=== PATIENT | male | born 1955 | race Caucasian/White ===

== ENCOUNTER 2018-07-25 07:17 | Inpatient (IN) ==
[2018-07-19 17:53] LABS: Basophils # (Auto) 0.1 K/mcL (0.0-0.3); Basophils % (Auto) 0.8 % (0.0-2.0); Eosinophils # (Auto) 0.1 K/mcL (0.0-0.7); Eosinophils % (Auto) 2.2 % (0.0-7.0); Granulocytes % (Auto) 62.3 % (38.0-78.0); Lymphocytes # (Auto) 1.6 K/mcL (1.5-4.8); Mean Cell Volume 94.5 fL (80.0-100.0); Mean Corpuscular HGB Conc 32.1 g/dL (31.0-36.0); Monocytes # (Auto) 0.6 K/mcL (0.1-0.9); Monocytes % (Auto) 9.7 % (1.0-12.0); Platelet Count 215 K/mcL (140-440); RBC 5.17 M/mcL (4.50-5.90); Red Cell Distribution Width 15.8 % (11.5-14.5)
[2018-07-19 18:20] LABS: Appearance,Urine CLEAR; Bilirubin,Urine NEG (NEG); Color,Urine YELLOW; Glucose,Urine (UA) NEGATIVE (NEG); Leukocyte Esterase,Urine NEG /uL (NEG); Protein,Urine NEG (NEG); Urine Blood NEG mg/dL (<0.03); Urobilinogen,Urine NEG (NEG)
[2018-07-19 18:29] LABS: Blood Urea Nitrogen 12 mg/dl (8-23)
[~2018-07-25 07:17] MED LIST: ACETAMINOPHEN 500 MG TABLET PO SCH; PREGABALIN 75 MG CAPSULE PO SCH; ceFAZolin 1 GM VIAL IV SCH; oxyCODONE 10 MG TAB.ER.12H PO SCH
[2018-07-25] MEDS ORDERED: GABAPENTIN 300 MG CAPSULE PO SCH (08:00)
[2018-07-25] MEDS ORDERED: NICOTINE 14 MG PATCH TOPICAL SCH (10:00)
[2018-07-25] MEDS ORDERED: IPRATROPIUM/ALBUTEROL 3 ML AMPUL.NEB NEB ONE (10:09)
[2018-07-25] MEDS ORDERED: GENTAMICIN SULFATE 800 MG/20 ML VIAL IR ONE (10:22)
[2018-07-25] MEDS ORDERED: BUPIVACAINE W/EPI 0.5% 50 ML VIAL IJ ONE (10:22)
[2018-07-25] MEDS ORDERED: fentaNYL 250 MCG/5 ML VIAL IV ONE (11:05)
[2018-07-25] MEDS ORDERED: KETAMINE 100 MG/ML ML IV ONE (11:05)
[2018-07-25] MEDS ORDERED: GLYCOPYRROLATE 0.2 MG/ML VIAL IV ONE (11:05)
[2018-07-25] MEDS ORDERED: PROPOFOL 200 MG/20 ML VIAL IV ONE (11:05)
[2018-07-25] MEDS ORDERED: ePHEDrine 50 MG/ML AMPUL IV ONE (11:05)
[2018-07-25] MEDS ORDERED: MIDAZOLAM 5 MG/5 ML VIAL IV ONE (11:05)
[2018-07-25] MEDS ORDERED: LIDOCAINE HCL/PF 100 MG/5 ML SYRINGE IV ONE (11:05)
[2018-07-25] MEDS ORDERED: TRANEXAMIC ACID 1,000 MG/10 ML VIAL IV ONE ×2 (11:05→12:38)
[2018-07-25] MEDS ORDERED: SUCCINYLCHOLINE 20 MG/ML ML IV ONE (11:05)
[2018-07-25] MEDS ORDERED: MEPERIDINE 25 MG/ML SYRINGE IV PRN (11:58)
[2018-07-25] MEDS ORDERED: IPRATROPIUM/ALBUTEROL 3 ML AMPUL.NEB NEB PRN ×2 (11:58→15:00)
[2018-07-25] MEDS ORDERED: ATROPINE SULFATE 0.4 MG/ML VIAL IV PRN (11:58)
[2018-07-25] MEDS ORDERED: NALOXONE HCL 0.4 MG/ML VIAL IV PRN (11:58)
[2018-07-25] MEDS ORDERED: HYDROmorphone 2 MG/ML VIAL IV PRN (11:58)
[2018-07-25] MEDS ORDERED: ONDANSETRON 4 MG/2 ML VIAL IV PRN ×2 (11:58→12:38)
[2018-07-25] MEDS ORDERED: METHOCARBAMOL 1,000 MG/10 ML VIAL IV PRN (11:58)
[2018-07-25] MEDS ORDERED: diphenhydrAMINE 50 MG/ML VIAL IV PRN (11:58)
[2018-07-25] MEDS ORDERED: ePHEDrine 50 MG/ML AMPUL IV PRN (11:58)
[2018-07-25] MEDS ORDERED: FLUMAZENIL 0.1 MG/ML ML IV PRN (11:58)
[2018-07-25] MEDS ORDERED: PROMETHAZINE 25 MG/ML VIAL IV PRN (11:58)
[2018-07-25] MEDS ORDERED: LACTATED RINGERS 1,000 ML IV SCH (12:00)
[2018-07-25] MEDS ORDERED: MAGNESIUM HYDROXIDE 30 ML ORAL.SUSP PO PRN (12:38)
[2018-07-25] MEDS ORDERED: TEMAZEPAM 15 MG CAPSULE PO PRN (12:38)
[2018-07-25] MEDS ORDERED: BENZOCAINE/MENTHOL 1 LOZENGE PO PRN (12:38)
[2018-07-25] MEDS ORDERED: ACETAMINOPHEN 325 MG TABLET PO PRN (12:38)
[2018-07-25] MEDS ORDERED: FLEETS ADULT ENEMA PR PRN (12:38)
[2018-07-25] MEDS ORDERED: POLYETHYLENE GLYCOL 3350 17 GM PACKET PO PRN (12:38)
[2018-07-25] MEDS ORDERED: BISACODYL 10 MG SUPP.RECT PR PRN (12:38)
--- NOTE | 2018-07-25 12:38 | Brief Operative Note ---
Date of procedure: 07/25/18 Pre-op diagnosis: Left shoulder djd severe and bicep tendonopathy Post-op diagnosis: same Procedure: left shoulder reveres tsa and bicep tenodesis Grafts/Implants: Yes Anesthesia: GETA Complications: none Surgeon: Ray Santo Filling Layer Up: Mega Gallagher Estimated blood loss (cc): 50 Specimens Removed/Pathology: none sent Condition: stable Disposition: PACU
[2018-07-25] MEDS ORDERED: ALBUTEROL SULFATE INHALATION PRN (12:40)
[2018-07-25] MEDS ORDERED: NON FORMULARY MEDICATION 1 DOSE MISCELL (Epinephrine [Epipen] 0.3 MG) IM PRN (12:40)
[2018-07-25] MEDS ORDERED: LIDOCAINE PATCH TOPICAL SCH (12:45)
[2018-07-25] MEDS ORDERED: ALBUTEROL SULFATE 1 PUFF INHALER INH PRN (13:16)
[2018-07-25] MEDS: fentaNYL 100 MCG/2 ML VIAL IV PRN ×4 (13:26→13:44)
[2018-07-25] MEDS: METOPROLOL TARTRATE 5 MG/5 ML VIAL IV PRN ×2 (13:55→14:01)
--- NOTE | 2018-07-25 14:11 | Operative Note ---
DATE OF OPERATION: 07/25/2018 PREOPERATIVE DIAGNOSIS: Left shoulder severe degenerative arthritis with partial cuff tear, biceps tendinopathy. POSTOPERATIVE DIAGNOSES: 1. Left shoulder severe degenerative arthritis with partial cuff tear, biceps tendinopathy. 2. Left reverse total shoulder with biceps tenodesis. SURGEON: Ray Santo MD CLINICAL PROFESSOR: Mega Gallagher PA-C. ANESTHESIA: General LMA anesthesia. COMPLICATIONS: None. DESCRIPTION OF PROCEDURE: The patient was brought to the operating room and put to sleep with general LMA anesthesia. Once asleep, the patient had the left arm confirmed as the operative site by initials, consent form and x-rays. Once done, the arm was sterilely prepped and draped and Ioban was placed over the skin. A deltopectoral approach was performed with a curved anterior incision from the coracoid to the base of the deltoid insertion site. We identified the cephalic vein, and this and deltoids were retracted laterally. We identified the subscap and the conjoined tendon. The conjoined tendon was retracted and we released the subscap anteriorly. The remnants of the biceps tendon were released and this was repaired to the pec major with two [id number] stitches after roughening the bone. Once a formal repair with a FiberWire had been done of the biceps tendon we then subluxed the humeral head, releasing the inferior capsule around the humeral head, placing retractors and then made or neck cut at 135 degrees from the cutting guide with 20 degrees of retroversion. Once this was cut, we then removed the bony fragment and subluxed the head posteriorly after removing osteophytes. Once done, retractors were placed. We then released the capsule around the glenoid and the remnants of the biceps tendon inside the joint and the labrum, 360 degree capsule release around the glenoid was performed and then we placed a drill hole in the middle with a pin at 10 degrees of inclination. Once done, we then reamed up to the size of 36 and then removed any bony overhang. Once done, we then placed a 36 mm screw centrally. This seemed to give good fixation centrally. We had to discard the first because it was unable to fully tension because of the screwdriver. The second screw tensioned perfectly and then we placed three additional screws, which were 32, 28 and 24. These gave excellent purchase. We tightened all screws and then we placed a 36 mm glenosphere with 2 mm of offset and 2 mm of eccentricity. Once done this was tapped into place. We prepared the humeral side, a size 8 stem, cementless. We then tapped this into place, and it was a little tight initially. We then had to countersink the stem 2 mm and then retrialed which was perfectly tensioned, regaining motion. We irrigated thoroughly, placed a size 8 cementless stem with a standard thickness poly. The patient tolerated this well. There was no complication. The shoulder was reduced and taken through full range of motion. It was stable, internal and external rotation and full adduction. We then irrigated thoroughly and did not repair the subscap and made sure the biceps tendon was fully repaired, which it was. We irrigated thoroughly with pulse lavage, closed the deltopectoral interval after inspecting it for bleeding and then closed the skin with 2-0 Vicryl and 3-0 Monocryl and adhesive closure was placed. The patient tolerated this well. There was no complication. A DonJoy sling was fitted and given to the patient. RBH:duc Job ID: [id number] Doc ID: [id number] Ray Santo MD
--- NOTE | 2018-07-25 14:15 | XRay Report ---
HISTORY: Postop left shoulder replacement FINDINGS: There is a well-positioned reverse left total shoulder prosthesis. There is no fracture or abnormal soft tissue calcification around the joint. Acromioclavicular joint is normal. IMPRESSION: Well-positioned shoulder prosthesis Interpreted and Authenticated by: Parrish Jiang 07/25/18
[2018-07-25] MEDS: KETOROLAC 15 MG/ML VIAL IV PRN ×2 (14:33→22:35)
[2018-07-25] MEDS: HYDROmorphone 2 MG/ML VIAL IV PRN ×2 (14:42→17:38)
[2018-07-25] MEDS: HYDROcodone/APAP 10/325MG TABLET PO PRN ×3 (14:43→22:37)
[2018-07-25] MEDS: 0.9 % SODIUM CHLORIDE 10 ML SYRINGE IV SCH ×2 (15:32→22:39)
[2018-07-25] MEDS: 0.45 % SODIUM CHLORIDE 1,000 ML IV SCH (17:36)
[2018-07-25] MEDS: OMEPRAZOLE 20 MG CAPSULE PO SCH (17:36)
[2018-07-25] MEDS: ceFAZolin 1 GM VIAL IV SCH (20:52)
[2018-07-25] MEDS: DOCUSATE SODIUM 100 MG CAPSULE PO SCH (20:55)
[2018-07-25] MEDS: GABAPENTIN 300 MG CAPSULE PO SCH (20:55)
[2018-07-25] MEDS ORDERED: ATORVASTATIN 20 MG TABLET PO SCH (21:00)
[2018-07-25] MEDS ORDERED: SENNOSIDES 1 TABLET PO SCH (21:00)
[2018-07-26] MEDS: 0.45 % SODIUM CHLORIDE 1,000 ML IV SCH (03:25)
[2018-07-26] MEDS: HYDROmorphone 2 MG/ML VIAL IV PRN (03:26)
[2018-07-26] MEDS: ceFAZolin 1 GM VIAL IV SCH (03:26)
[2018-07-26] MEDS: HYDROcodone/APAP 10/325MG TABLET PO PRN ×3 (03:27→11:30)
[2018-07-26] MEDS: 0.9 % SODIUM CHLORIDE 10 ML SYRINGE IV SCH (06:00)
[2018-07-26] MEDS: OMEPRAZOLE 20 MG CAPSULE PO SCH (07:01)
--- NOTE | 2018-07-26 07:33 | Orthopedic Progress Note ---
Subjective Patient information: Note initiated : 07/26/18 at 7:32 am Service Date, if different from initiated Date: [] Patient: Mando Valdez 63 y/o M admitted on 07/25/18 for Left Reverse Total Shoulder Arthroplasty with Open. Chief Complaint: [Pt is stable this morning on post operative day 1 without any significant concerns or complaints. Patients vital signs have remained stable. Patients dressing is dry and is grossly intact from a neurovascular and motor standpoint. Patients 10 point ROS is otherwise negative. ] Objective Vital signs: Vital Signs Temp Pulse Pulse Resp BP BP Pulse Ox 07/26/18 03:00 98.3 F 75 20 124/74 92 07/25/18 23:33 98.4 F 90 20 133/83 94 07/25/18 19:35 88 18 07/25/18 18:50 98.9 F 87 22 133/79 90 07/25/18 17:02 127/87 92 07/25/18 16:01 117/80 93 07/25/18 15:32 118/77 92 07/25/18 15:02 126/81 94 07/25/18 14:47 146/95 92 07/25/18 14:31 151/65 92 07/25/18 14:16 149/95 91 07/25/18 14:06 98.7 F 77 17 136/90 98 07/25/18 13:51 98.7 F 127 H 21 153/88 98 07/25/18 13:36 97.6 F 101 H 16 148/99 98 07/25/18 13:20 97.6 F 99 H 23 H 149/92 98 07/25/18 13:15 92 H 21 141/89 97 07/25/18 13:10 98 H 22 137/86 97 07/25/18 13:06 97.9 F 101 H 16 134/85 97 07/25/18 07:41 98.8 F 18 154/87 96 Intake and Output 07/25/18 07/26/18 07/26/18 21:59 05:59 13:59 Intake Total 900 1682 Output Total 400 600 Balance 500 1082 Intake: IV 982 Sodium Chloride 0.45% 1,000 ml 982 @ 100 mls/hr IV .Q10H [facility] Rx#: [id number] Oral 600 700 IV - Manual Only 300 Output: Void Amount 400 600 Other: Meal Dinner Percent of Meal Consumed 100% Feeding Ability Independent Urine Appearance Clear Clear Urine Color Light Andra Light Andra Urine Odor Strong Strong Weight 201 lb Intake & Output: Intake & Output 07/25/18 07/26/18 07/26/18 21:59 05:59 13:59 Intake Total 900 1682 Output Total 400 600 Balance 500 1082 Weight 201 lb Intake: IV 982 Sodium Chloride 0.45% 1,000 ml 982 @ 100 mls/hr IV .Q10H [facility] Rx#: [id number] Oral 600 700 IV - Manual Only 300 Output: Void Amount 400 600 Other: Meal Dinner Percent of Meal Consumed 100% Feeding Ability Independent Urine Appearance Clear Clear Urine Color Light Andra Light Andra Urine Odor Strong Strong Incision: Yes healing Incision clean and dry: Yes Dressing: Yes clean Weight bearing status: full Neurological exam IM: Yes motor sensory intact, Yes neurovascular intact Extremities exam IM: Yes Foot pink and warm, Yes neurovascular intact - Labs CBC & BMP: 07/19/18 15:01 07/19/18 15:01 Labs: 07/19/18 15:01 Hgb 15.7 Hct 48.8 Assessment and Plan (1) History of reverse total replacement of left shoulder joint The patient has been educated regarding dressing care, Physical Therapy recommen dations, home exercises, restrictions, and follow up appointments. The patient has had all necessary DME prescribed. The patient has remained relatively stable during their hospital course. Leave Dermabond patch intact until followup Status: Acute
--- NOTE | 2018-07-26 07:38 | Discharge Summary ---
Ortho Discharge - TSA - Patient Instructions Diet: Regular Diet Activity: activity as tolerated, weight bearing as tolerated Total Shoulder Protocol: Leave immobilizer in place except for bathing and ROM. Abduction pillow. Continue to wear sling until seen by physician. Codman Pendulum : These exercises use momentum produced by your body to move your shoulder joint. Bend your knees and shift your weight to your front leg, then back, allowing your arm to swing in the same directions. Using the same technique, alternately shift your weight between your right and left legs, allowing your arm to swing from side to side. These exercises are also performed in counterclockwise and clockwise circular motions. Typically these exercises are performed several times per day, for a set number repetitions or minutes, such as 20 times in a row or 5 minutes at a time. Dressing Care: May shower in 2 days - Problem Maintenance (1) History of reverse total replacement of left shoulder joint Status: Acute - Follow Up Plan Follow Up Appointments: Mega Gallagher PA-C [Physician [facility]] - 08/09/18 3:50 pm Disposition: Home, Self-Care Prognosis: Good Rehab Potential: Good I certify that the patient requires SNF services: No Overall status at discharge: patient is progressing back to baseline - Orders For Discharge Prescriptions: Docusate Sodium [Colace] 100 mg PO BID #60 capsule HYDROcodone/APAP 10/325MG [Anthony 10-325Mg] 1 - 2 tab PO Q4HP PRN #75 tab PRN Reason: Pain Level 3-6
[2018-07-26] MEDS: GABAPENTIN 300 MG CAPSULE PO SCH (07:52)
[2018-07-26] MEDS: DOCUSATE SODIUM 100 MG CAPSULE PO SCH (07:52)
[2018-07-26] MEDS ORDERED: ASPIRIN 81 MG TAB.CHEW PO SCH (09:00)
[2018-07-26] MEDS ORDERED: Tiotropium Br/Olodaterol Hcl [Stiolto Respimat] Inhaler INH SCH (09:00)
[2018-07-26] MEDS: KETOROLAC 15 MG/ML VIAL IV PRN (10:25)
== END 2018-07-26 12:20 | disposition home or self-care (01) | DRG 483 ==
LOC: MEDSUR 07:17 → EDSTATUS 12:00
PROVIDERS: ADMIT Orthopaedic Surgery; ATTEND Orthopaedic Surgery

== ENCOUNTER 2018-07-28 15:17 | Inpatient (IN) ==
[2018-07-28] MEDS ORDERED: NALOXONE HCL 0.4 MG/ML VIAL IV PRN (16:56)
[2018-07-28] MEDS ORDERED: ONDANSETRON 4 MG/2 ML VIAL IV PRN (16:56)
[2018-07-28] MEDS ORDERED: ALBUTEROL SULFATE 2.5 MG/3 ML NEBULIZER NEB PRN (16:56)
[2018-07-28] MEDS ORDERED: ACETAMINOPHEN 325 MG TABLET PO PRN (16:56)
--- NOTE | 2018-07-28 17:25 | Internal Med History&Physical ---
Medical - H&P: HPI Patient information: Note initiated : 07/28/18 at 5:23 pm Service Date, if different from initiated Date: [] Patient: Mando Valdez 63 y/o M admitted on 07/28/18 for COPD, pneumonia. Chief Complaint: fever, dyspnea, lethargy History of present illness: Mr. Valdez is a 63 year old M with a history of COPD, tobacco abuse, peptic sleep apnea on CPAP, reflux, coronary disease and osteoarthritis who had a reverse left total shoulder done on Wednesday of this week, who presents from [facility] with acute respiratory infection. The patient was discharged from the hospital on Wednesday. They live out of [facility] in [place] overnight Wednesday. He developed some labored breathing. The next morning he was about the same, however they went home. He subsequently continued to have labored breathing, developed fever up to 101.5. He became lethargic, decreased appetite, more fatigued and experiencing body aches in his upper body. He was using his incentive spirometer, he was driving 2500 mL on the hospital, could only get inspiratory volume to 500 mL's by the time they presented to the hospital. Today he continued to have fever, was fatigued and falling asleep or trying to eat, was dyspneic. His home oxygen saturation was about 70%. He received a DuoNeb, this increased to 73%. He did have a tank of oxygen at home (he does not routinely use oxygen) and they presented to [facility]. There is temperature was [id number]. Pulse is in the 90s. Saturations on room air were in the low 80s. White count was elevated at 13.7, electrolytes and renal function were normal. Chest radiograph, reports reads "Bilateral perihilar fullness and bilateral pulmonary opacities. The appearance is nonspecific but can be seen in setting of pulmonary edema, diffuse pneumonitis, atypical infection." He was still experiencing significant dyspnea which improved to some degree after breathing treatments. He is transferred to [facility] for hospitalization for COPD exacerbation with pneumonia, meeting sepsis criteria with fever, white count, tachypnea, hypoxia and suspected infection. As noted the patient has noted fever, he's had no rigors. He has a cough, is productive of scant tannish sputum. He's having muscular and rib pain across his anterior chest with coughing today. Said decreased appetite and has noticed his urine volume is become decreased and urine has darkened. No nausea or vomiting, no abdominal pain. He is constipated, he has not had a bowel movement since Wednesday. No focal neurologic symptoms. Psoriatic lesions are stable. Chronic knee pains which are unchanged. All systems: reviewed and no additional remarkable complaints except as stated Medical - H&P: PMH Medical history: Tobacco use (Chronic) History of MRSA infection (Chronic) Vertigo (Chronic) Ganglion cyst (Chronic) Osteoarthritis (Chronic) Cooper syndrome (Chronic) Chest pain (Chronic) Depressed mood (Chronic) Weight gain (Chronic) Chronic pain of both knees (Chronic) Laryngospasm (Chronic) Asthma (Chronic) Knee pain (Chronic) Sensorineural hearing loss, bilateral (Chronic) Psoriasis, unspecified (Chronic) Pain in right knee (Chronic) Obstructive sleep apnea (Chronic) Moderate persistent asthma, uncomplicated (Chronic) Hyperlipidemia, unspecified (Chronic) 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) Gastro-esophageal reflux disease without esophagitis (Chronic) Ganglion, unspecified wrist (Chronic) Calculus of kidney (Chronic) Bilateral primary osteoarthritis of knee (Chronic) Unspecified hemorrhoids (Chronic) COPD (chronic obstructive pulmonary disease) (Chronic) Past heart attack (Suspected) Airway polyps (Resolved) Pneumothorax (Resolved) Surgical history: H/O hernia repair (Chronic) H/O left knee surgery (Chronic) H/O vasectomy (Chronic) History of amputation of left thumb (Chronic) History of colonoscopy (Chronic ~2012) H/O left reverse total shoulder arthroplasty (07/25/2018) Pertinent family history: Mother Emphysema Family/Other Cooper syndrome Social history: [place] with [place] in [place] from [place]. Smokes about a half pack cigarettes a day. Occasionally drinks alcohol. Medical - H&P: Meds Home Medications Medication Instructions Recorded Confirmed Type albuterol sulfate 2.5 mg/3 mL 2.5 mg INHALATION Q4HP PRN 04/23/17 07/28/18 History (0.083 %) solution for nebulization aspirin 81 mg chewable tablet 81 mg PO QDAY 04/23/17 07/28/18 History atorvastatin 10 mg tablet 10 mg PO QDAY 04/23/17 07/28/18 History diclofenac 1 % topical gel 2 - 4 g TOPICAL BIDP PRN g 04/23/17 07/28/18 History omeprazole 40 mg capsule,delayed 40 mg PO BIDAC 04/23/17 07/28/18 History release epinephrine 0.3 mg/0.3 mL 0.3 mg IM PRN PRN 04/26/17 07/28/18 History injection, auto-injector ipratropium-albuterol 0.5 mg-3 3 ml INHALATION Q4HP PRN ml 04/26/17 07/28/18 History mg(2.5 mg base)/3 mL nebulization soln mometasone 220 mcg (120 doses) 2 inh INHALATION BID each 04/26/17 07/28/18 History breath activated powder inhaler gabapentin 300 mg capsule 600 mg PO BID 08/25/17 07/28/18 History lidocaine 5 % topical patch 1 patch TOPICAL Q24H 08/25/17 07/28/18 History tiotropium 2.5 mcg-olodaterol 2.5 2 puff INHALATION QAM g 03/09/18 07/28/18 History mcg/actuation mist for inhalation albuterol sulfate HFA 90 2 puff INHALATION Q6H PRN #34 g 06/28/18 07/28/18 Rx mcg/actuation aerosol inhaler Diazepam [Valium] 5 mg PO TIDP PRN #60 tab 07/26/18 07/28/18 Rx Docusate Sodium [Colace] 100 mg PO BID #60 cap 07/26/18 07/28/18 Rx HYDROcodone/APAP 10/325MG [[place] 1 - 2 tab PO Q4HP PRN #75 tab 07/26/18 07/28/18 Rx 10-325Mg] Allergies Allergy/AdvReac Type Severity Reaction Status Date / Time levofloxacin Allergy Severe Swelling Verified 07/19/18 14:12 of Lip/Tongue/Throat Sulfa (Sulfonamide Allergy Severe Swelling Verified 07/19/18 14:19 Antibiotics) of Lip/Tongue/Throat fluticasone Allergy Intermediate "RESPIRATORY Verified 07/19/18 14:12 ISSUES" Penicillins Allergy Intermediate "BREATHING Verified 07/19/18 14:12 PROBLEMS" oxycodone [Oxycodone] AdvReac Mild Vomiting Verified 07/19/18 14:12 Medical - H&P: Exam - Constitutional Vitals: Temp Pulse Resp BP Pulse Ox 99.5 F H 90 18 141/78 90 07/28/18 16:30 07/28/18 16:35 07/28/18 16:30 07/28/18 16:31 07/28/18 16:35 Exam: GENERAL: Alert, oriented, in no acute distress. Cooperative, appears stated age. HEENT: Atraumatic. PERRL, conjunctiva clear, no scleral icterus. Hearing grossly intact. Oropharynx with moist mucous membranes, small abrasion on upper and lower lips at the midline, thought from intubation. No pharyngeal erythema or exudate. Tongue midline, palate rises symmetrically. NECK: Supple without meningismus, no thyromegaly RESPIRATORY: Breath sounds diminished bilaterally, mildly prolonged expiratory phase, scattered expiratory wheezes, no rales or rhonchi. Respiratory effort is mildly labored. CARDIOVASCULAR: Regular rate and rhythm, a bit distant, no murmur gallop or rub appreciated. No peripheral edema. Carotid pulses 2+ without bruit. GI: Abdomen soft, nontender, no guarding or rebound. Bowel sounds are present. No hepatosplenomegaly. LYMPHATIC: No cervical or supraclavicular lymphadenopathy MUSCULOSKELETAL: Left upper extremity is in shoulder immobilizer. Well approximated surgical scar without surrounding erythema or edema. No other joint erythema or swelling. Well-healed surgical scars on the left and right knees. SKIN: Surgical wound as noted above, otherwise scattered plaquing lesions on the extremities. NEUROLOGIC: Cranial nerves II through XII grossly intact. Muscle mass normal. Strength 5/5 in the right upper and lower extremities. Left upper extremity is neurovascularly intact. Sensation intact to light touch bilaterally. PSYCHIATRIC: Alert, oriented x3, normal mood and affect, normal insight. Medical - H&P: Reslt - Labs CBC & Chem 7: 07/28/18 18:05 07/28/18 18:05 Labs: Laboratory Results - last 24 hr 07/28/18 07/28/18 07/28/18 18:00 18:05 18:05 WBC 13.4 H RBC 4.20 L Hgb 13.1 L Hct 40.3 L MCV 96.1 MCH 31.2 MCHC 32.5 RDW 16.0 H Plt Count 165 MPV 9.5 Total Counted 100 Seg Neutrophils % 77 Band Neutrophils % 4 Lymphocytes % 10 L Monocytes % (Manual) 8 Basophils % (Manual) 1 WBC Morphology Abnorm A Toxic Granulation 1+ A Platelet Estimate Normal RBC Morphology Normal VBG Lactic Acid Sodium 136 Potassium 4.1 Chloride 100 Carbon Dioxide 26 Anion Gap 10.0 BUN 10 Creatinine 0.7 GFR Calculation 100 Glucose 108 H Uric Acid 2.6 Calcium 8.5 L Phosphorus 1.6 L Magnesium 1.7 Total Bilirubin 0.7 Direct Bilirubin 0.2 GGT 91 H AST 33 ALT 23 Alkaline Phosphatase 75 Lactate Dehydrogenase 357 H Total Protein 6.2 Albumin 3.0 L Globulin 3.2 Albumin/Globulin Ratio 0.9 L Triglycerides 93 Procalcitonin Mycoplasma pneumon IgM Negative 07/28/18 07/28/18 18:28 19:59 WBC RBC Hgb Hct MCV MCH MCHC RDW Plt Count MPV Total Counted Seg Neutrophils % Band Neutrophils % Lymphocytes % Monocytes % (Manual) Basophils % (Manual) WBC Morphology Toxic Granulation Platelet Estimate RBC Morphology VBG Lactic Acid 1.1 Sodium Potassium Chloride Carbon Dioxide Anion Gap BUN Creatinine GFR Calculation Glucose Uric Acid Calcium Phosphorus Magnesium Total Bilirubin Direct Bilirubin GGT AST ALT Alkaline Phosphatase Lactate Dehydrogenase Total Protein Albumin Globulin Albumin/Globulin Ratio Triglycerides Procalcitonin 0.16 Mycoplasma pneumon IgM - Imaging and Cardiology Chest x-ray Status: image reviewed by me Additional comments: Perihilar infiltrates. Medical - H&P: A/P - Narrative A/P Narrative: 63-year-old male COPD, tobacco abuse and fairly abrupt onset of pulmonary symptoms Wednesday evening, progressing until he was hypoxic and fatigued with lethargy at home today. Presented to outside hospital with hypoxemia, bronchospasm, leukocytosis and evidence of infiltrates on radiograph. COPD with exacerbation and pneumonia/sepsis -Elevated white count, normal lactate. Per the hilar infiltrates. Was significantly tight and hypoxic at [facility], now improving -Recent hospitalization here will cover for hospital-acquired pneumonia initially -Began ertapenem given penicillin allergy -Inpatient admission -Follow-up cultures at outside facility and here -Follow-up urine strep pneumo and Legionella antigen Acute hypoxemic respiratory failure -Secondary to pneumonia, COPD exacerbation -Supplemental oxygen as needed Tobacco abuse -Smoking cessation counseled Obstructive sleep apnea -Continue home CPAP Gastroesophageal reflux disease -Continue PPI History of left reverse total shoulder arthroplasty -Wound looks intact, no erythema, no edema, do not suspect source of infection -Let Dr. Santo know patient was hospitalized today. Continue with immobilizer Prophylaxis: Lovenox CODE STATUS: Full code
[2018-07-28] MEDS: 0.9 % SODIUM CHLORIDE 1,000 ML IV SCH (17:46)
[2018-07-28] MEDS: ERTAPENEM 1 GM in 0.9 % SODIUM CHLORIDE 50 ML IV SCH (17:49)
[2018-07-28 18:42] LABS: Mean Cell Volume 96.1 fL (80.0-100.0); Mean Corpuscular HGB Conc 32.5 g/dL (31.0-36.0); Platelet Count 165 K/mcL (140-440)
[2018-07-28] MEDS: IPRATROPIUM/ALBUTEROL 3 ML AMPUL.NEB NEB SCH ×2 (18:45→23:57)
[2018-07-28 19:09] LABS: ALT/SGPT 23 U/l (0-40); Albumin/Globulin Ratio 0.9 (1.0-2.3); Alkaline Phosphatase 75 U/L (39-117); Bilirubin,Direct 0.2 mg/dL (0.0-0.3); Blood Urea Nitrogen 10 mg/dl (8-23); Gamma Glutamyl Transpeptidase 91 U/L (8-61); Uric Acid 2.6 mg/dL (2.5-8.0)
[2018-07-28 20:17] LABS: Band Neutrophils % 4 % (0-10); Basophils % (Manual) 1 % (0-2); Lymphocytes % 10 % (15-49); Monocytes % (Manual) 8 % (1-12); Platelet Estimate NORMAL (NORMAL); RBC Morphology NORMAL (NORMAL); Segmented Neutrophils % 77 % (38-78); Toxic Granulation 1+ (NONE SEEN)
[2018-07-28] MEDS: HYDROcodone/APAP 5/325MG TABLET PO PRN (21:46)
[2018-07-28] MEDS: 0.9 % SODIUM CHLORIDE 10 ML SYRINGE IV SCH (22:33)
[2018-07-29] MEDS: 0.9 % SODIUM CHLORIDE 1,000 ML IV SCH ×3 (03:39→16:44)
[2018-07-29] MEDS: 0.9 % SODIUM CHLORIDE 10 ML SYRINGE IV SCH ×3 (05:29→22:00)
[2018-07-29] MEDS ORDERED: OMEPRAZOLE 20 MG CAPSULE PO SCH (07:30)
[2018-07-29] MEDS: HYDROcodone/APAP 5/325MG TABLET PO PRN ×4 (08:14→21:23)
[2018-07-29] MEDS: ERTAPENEM 1 GM in 0.9 % SODIUM CHLORIDE 50 ML IV SCH (08:17)
--- NOTE | 2018-07-29 08:58 | XRay Report ---
HISTORY: Pneumonia and COPD FINDINGS: There are moderate generalized alveolar opacities throughout both lungs. There is greater involvement in the left side than right with the greatest opacification left upper lobe and around the left hilum. This has not changed significantly since the earlier study done on the same date at [facility]. The heart size is within normal limits. There is no pleural effusion or pneumothorax. Left shoulder prosthesis is well-positioned. There are couple old healed left lateral rib fractures in the upper thorax.. IMPRESSION: Widespread bilateral alveolar opacities which could be due to pneumonia or pulmonary edema. Interpreted and Authenticated by: Parrish Jiang 07/29/18
[2018-07-29] MEDS ORDERED: ASPIRIN 81 MG TAB.CHEW PO SCH (09:00)
[2018-07-29] MEDS ORDERED: GABAPENTIN 300 MG CAPSULE PO SCH (09:00)
[2018-07-29] MEDS ORDERED: MOMETASONE FUROATE INH SCH (09:00)
[2018-07-29] MEDS ORDERED: ATORVASTATIN 20 MG TABLET PO SCH (09:00)
[2018-07-29] MEDS ORDERED: ENOXAPARIN 40 MG/0.4 ML SYRINGE SQ SCH (09:00)
[2018-07-29] MEDS ORDERED: STIOLTO RESPIMAT SCH (09:00)
[2018-07-29 09:05] LABS: Basophils # (Auto) 0 K/mcL (0.0-0.3); Basophils % (Auto) 0.2 % (0.0-2.0); Eosinophils # (Auto) 0.1 K/mcL (0.0-0.7); Eosinophils % (Auto) 0.5 % (0.0-7.0); Granulocytes % (Auto) 81.8 % (38.0-78.0); Lymphocytes # (Auto) 0.6 K/mcL (1.5-4.8); Lymphocytes % (Auto) 4.5 % (15.5-49.0); Mean Cell Volume 96.3 fL (80.0-100.0); Mean Corpuscular HGB Conc 32.2 g/dL (31.0-36.0); Monocytes # (Auto) 1.7 K/mcL (0.1-0.9); Platelet Count 200 K/mcL (140-440); RBC 4.12 M/mcL (4.50-5.90); Red Cell Distribution Width 16.1 % (11.5-14.5)
[2018-07-29] MEDS: IPRATROPIUM/ALBUTEROL 3 ML AMPUL.NEB NEB SCH ×3 (09:08→19:08)
[2018-07-29 09:25] LABS: ALT/SGPT 25 U/l (0-40); Albumin 3.2 gm/dL (3.2-5.2); Alkaline Phosphatase 88 U/L (39-117); Bilirubin,Direct 0.4 mg/dL (0.0-0.3); Blood Urea Nitrogen 8 mg/dl (8-23); Gamma Glutamyl Transpeptidase 103 U/L (8-61); Uric Acid 2.5 mg/dL (2.5-8.0)
[2018-07-29] MEDS ORDERED: NICOTINE 7 MG PATCH TOPICAL SCH (10:00)
[2018-07-29] MEDS ORDERED: DOCUSATE SODIUM 100 MG CAPSULE PO SCH (14:00)
--- NOTE | 2018-07-29 14:43 | Internal Med Progress Note ---
Medical - PN: Subj Patient information: Note initiated : 07/29/18 at 2:38 pm Service Date, if different from initiated Date: [] Patient: Mando Valdez 63 y/o M admitted on 07/28/18 for COPD, pneumonia. Chief Complaint: f/u COPD, PNA Interval history: 07/28 Mr. Valdez is a 63 year old M with a history of COPD, tobacco abuse, peptic sleep apnea on CPAP, reflux, coronary disease and osteoarthritis who had a re verse left total shoulder done on Wednesday of this week, who presents from [facility] with acute respiratory infection. The patient was discharged from the hospital on Wednesday. They live out of [facility] in [place] overnight Wednesday. He developed some labored breathing. The next morning he was about the same, however they went home. He subsequently continued to have labored breathing, developed fever up to 101.5. He became lethargic, decreased appetite, more fatigued and experiencing body aches in his upper body. He was using his incentive spirometer, he was driving 2500 mL on the hospital, could only get inspiratory volume to 500 mL's by the time they presented to the hospital. Today he continued to have fever, was fatigued and falling asleep or trying to eat, was dyspneic. His home oxygen saturation was about 70%. He received a DuoNeb, this increased to 73%. He did have a tank of oxygen at home (he does not routinely use oxygen) and they presented to [facility]. There is temperature was [id number]. Pulse is in the 90s. Saturations on room air were in the low 80s. White count was elevated at 13.7, electrolytes and renal function were normal. Chest radiograph, reports reads "Bilateral perihilar fullness and bilateral pulmonary opacities. The appearance is nonspecific but can be seen in setting of pulmonary edema, diffuse pneumonitis, atypical infec tion." He was still experiencing significant dyspnea which improved to some degree after breathing treatments. He is transferred to [facility] for hospitalization for COPD exacerbation with pneumonia, meeting sepsis criteria with fever, white count, tachypnea, hypoxia and suspected infection. 2/8 Feels improved this morning, though still short of breath. No fever or chills. Requiring oxygen today. - Constitutional Vitals: Vital Signs Temp Pulse Resp BP Pulse Ox 99.6 F H 91 H 20 165/98 93 07/29/18 11:30 07/29/18 13:58 07/29/18 13:58 07/29/18 11:37 07/29/18 11:37 Period Temp Pulse Resp BP Sys/Sarah Pulse Ox Last 24 Hr 98.7 F-100.0 F 75-116 16-30 122-165/73-113 89-97 Intake and Output 07/29/18 07/29/18 07/29/18 05:59 13:59 21:59 Intake Total 1088 1572 Output Total 400 1725 Balance 688 -153 Intake & Output: Intake & Output 07/29/18 07/29/18 07/29/18 05:59 13:59 21:59 Intake Total 1088 1572 Output Total 400 1725 Balance 688 -153 Intake: IV 988 992 Sodium Chloride 0.9% 1,000 ml @ 988 942 100 mls/hr IV .Q10H [facility] Rx#: [id number] INVanz 1 GM In Sodium Chloride 50 0.9% 50 ml @ 100 mls/hr IV Q24H [facility]TE Rx#:[id number] Oral 100 580 Output: Void Amount 400 1725 Other: Meal Lunch Percent of Meal Consumed 0% Urine Appearance Clear Clear Urine Color Light Andra Dark Yellow Urine Odor Normal # Voids 1 Exam: General: Nontoxic, in no distress Chest: Examined during DuoNeb treatment, some prolonged expiratory phase, diminished breath sounds and microvascular: Distant, regular Abdomen: Soft, nontender Muscular skeletal: Left upper extremity and shoulder immobilizer Neuro: Alert, oriented, no acute distress. Medical - PN: Obj Da - Labs CBC & Chem 7: 07/29/18 08:36 07/29/18 08:36 Labs: Abnormal Lab Results 07/29/18 07/29/18 07/28/18 08:36 08:36 18:05 WBC 12.7 H RBC 4.12 L Hgb 12.8 L Hct 39.7 L RDW 16.1 H Gran % 81.8 H Lymph % (Auto) 4.5 L [place] % (Auto) 13.0 H Gran # 10.4 H Lymph # (Auto) 0.6 L [place] # (Auto) 1.7 H Lymphocytes % WBC Morphology Toxic Granulation Glucose 121 H 108 H Calcium 8.5 L Phosphorus 1.6 L 1.6 L Direct Bilirubin 0.4 H GGT 103 H 91 H Lactate Dehydrogenase 319 H 357 H Albumin 3.0 L Albumin/Globulin Ratio 0.9 L 07/28/18 18:05 WBC 13.4 H RBC 4.20 L Hgb 13.1 L Hct 40.3 L RDW 16.0 H Gran % Lymph % (Auto) [place] % (Auto) Gran # Lymph # (Auto) [place] # (Auto) Lymphocytes % 10 L WBC Morphology Abnorm A Toxic Granulation 1+ A Glucose Calcium Phosphorus Direct Bilirubin GGT Lactate Dehydrogenase Albumin Albumin/Globulin Ratio Meds: Medications Acetaminophen (Tylenol) 650 mg PO Q6HP PRN PRN Reason: PAIN/FEVER > 101 Hydrocodone Bitart/Acetaminophen ([place] 5/325mg) 1 tab PO Q4HP PRN PRN Reason: PAIN LEVEL 3-6 Last Admin: 07/29/18 11:39 Dose: 1 tab Documented by: Albuterol Sulfate (Ventolin) 2.5 mg NEB Q2HP PRN PRN Reason: Dyspnea Last Admin: 07/29/18 03:39 Dose: 2.5 mg Documented by: Albuterol/Ipratropium (Duoneb) 3 ml NEB Q6HRT [facility] Last Admin: 07/29/18 13:58 Dose: 3 ml Documented by: Aspirin (Aspirin) 81 mg PO QDAY [facility] Last Admin: 07/29/18 09:41 Dose: 81 mg Documented by: Atorvastatin Calcium (Lipitor) 10 mg PO QDAY [facility] Last Admin: 07/29/18 09:40 Dose: 10 mg Documented by: Docusate Sodium (Colace) 100 mg PO BID [facility] Last Admin: 07/29/18 14:05 Dose: 100 mg Documented by: Enoxaparin Sodium (Lovenox) 40 mg SQ DAILY [facility] Last Admin: 07/29/18 09:41 Dose: 40 mg Documented by: Gabapentin (Neurontin) 600 mg PO BID [facility] Last Admin: 07/29/18 09:41 Dose: 600 mg Documented by: Ertapenem 1 gm/ Sodium (Chloride) 50 mls @ 100 mls/hr IV Q24H [facility] Last Infusion: 07/29/18 08:50 Dose: Infused Documented by: Sodium Chloride (Sodium Chloride 0.9%) 1,000 mls @ 100 mls/hr IV .Q10H [facility] Last Admin: 07/29/18 13:47 Dose: 100 mls/hr Documented by: Morphine Sulfate (Morphine) 4 mg IV Q2HP PRN PRN Reason: Chest Pain Naloxone HCl (Narcan) 0.1 mg IV Q2MIN PRN PRN Reason: Opiate Reversal Nicotine (Nicoderm) 7 mg TOPICAL DAILY@1000 [facility] Last Admin: 07/29/18 10:10 Dose: 7 mg Documented by: Omeprazole (Prilosec) 40 mg PO BIDAC [facility] Last Admin: 07/29/18 07:53 Dose: 40 mg Documented by: Ondansetron HCl (Zofran) 4 mg IV Q4HP PRN PRN Reason: Nausea And Vomiting Mometasone Furoate [ (Asmanex] Inh) 2 dose INH BID [facility] Last Admin: 07/29/18 11:27 Dose: 2 dose Documented by: Nury Respimat Inh 2 dose INH QAM [facility] Last Admin: 07/29/18 11:27 Dose: 2 dose Documented by: Sodium Chloride (Saline Flush) 10 ml IV Q8 [facility] Last Admin: 07/29/18 14:05 Dose: Not Given Documented by: Medical - PN: A/P - Narrative A/P Narrative: 63-year-old male COPD, tobacco abuse and fairly abrupt onset of pulmonary symptoms Wednesday evening, progressing until he was hypoxic and fatigued with lethargy at home today. Presented to outside hospital with hypoxemia, bronchospasm, leukocytosis and evidence of infiltrates on radiograph. COPD with exacerbation and pneumonia/sepsis-Improving -Elevated white count, normal lactate. Perihilar infiltrates. Was significantly tight and hypoxic at [facility] -Recent hospitalization here will covering for hospital-acquired pneumonia with ertapenem (PCN allergy) -Follow-up cultures at outside facility and here -Transfer to Med/Surg Acute hypoxemic respiratory failure-Improving -Secondary to pneumonia, COPD exacerbation -Supplemental oxygen as needed Tobacco abuse -Smoking cessation counseled Obstructive sleep apnea -Continue home CPAP Gastroesophageal reflux disease -Continue PPI History of left reverse total shoulder arthroplasty -Wound looks intact, no erythema, no edema, do not suspect source of infection -Dr. Santo aware of admission. Continue with immobilizer Prophylaxis: Lovenox CODE STATUS: Full code Medical - PN: Qual - VTE Deep Vein Thrombosis/Pulmonary Embolism Present on Admission: No
[2018-07-29] MEDS ORDERED: NALOXONE HCL 0.4 MG/ML VIAL IV PRN (16:28)
[2018-07-29] MEDS ORDERED: ALBUTEROL SULFATE 2.5 MG/3 ML NEBULIZER NEB PRN (16:28)
[2018-07-29] MEDS ORDERED: ONDANSETRON 4 MG/2 ML VIAL IV PRN (16:28)
[2018-07-29] MEDS: OMEPRAZOLE 20 MG CAPSULE PO SCH (17:53)
[2018-07-29 18:17] LABS: Basophils # (Auto) 0 K/mcL (0.0-0.3); Basophils % (Auto) 0.1 % (0.0-2.0); Eosinophils # (Auto) 0.1 K/mcL (0.0-0.7); Granulocytes % (Auto) 82.4 % (38.0-78.0); Lymphocytes # (Auto) 0.4 K/mcL (1.5-4.8); Lymphocytes % (Auto) 3.4 % (15.5-49.0); Mean Cell Volume 96.2 fL (80.0-100.0); Mean Corpuscular HGB Conc 32.1 g/dL (31.0-36.0); Monocytes # (Auto) 1.5 K/mcL (0.1-0.9); Monocytes % (Auto) 13.1 % (1.0-12.0); Platelet Count 219 K/mcL (140-440); RBC 4.05 M/mcL (4.50-5.90); Red Cell Distribution Width 16.6 % (11.5-14.5)
[2018-07-29] MEDS: ACETAMINOPHEN 325 MG TABLET PO PRN (19:32)
[2018-07-29] MEDS: GABAPENTIN 300 MG CAPSULE PO SCH (21:55)
[2018-07-29] MEDS: DOCUSATE SODIUM 100 MG CAPSULE PO SCH (21:55)
[2018-07-30] MEDS: 0.9 % SODIUM CHLORIDE 1,000 ML IV SCH ×3 (00:34→22:53)
[2018-07-30] MEDS: IPRATROPIUM/ALBUTEROL 3 ML AMPUL.NEB NEB SCH ×4 (01:27→19:12)
[2018-07-30] MEDS: HYDROcodone/APAP 5/325MG TABLET PO PRN ×3 (01:27→17:50)
[2018-07-30] MEDS: MOMETASONE FUROATE INH SCH ×3 (03:19→21:11)
[2018-07-30 06:14] LABS: Basophils # (Auto) 0 K/mcL (0.0-0.3); Basophils % (Auto) 0.4 % (0.0-2.0); Eosinophils # (Auto) 0.3 K/mcL (0.0-0.7); Eosinophils % (Auto) 2.8 % (0.0-7.0); Granulocytes % (Auto) 73.5 % (38.0-78.0); Lymphocytes # (Auto) 0.7 K/mcL (1.5-4.8); Lymphocytes % (Auto) 6.9 % (15.5-49.0); Mean Cell Volume 96.4 fL (80.0-100.0); Mean Corpuscular HGB Conc 32.4 g/dL (31.0-36.0); Monocytes # (Auto) 1.7 K/mcL (0.1-0.9); Monocytes % (Auto) 16.4 % (1.0-12.0); Platelet Count 219 K/mcL (140-440); Red Cell Distribution Width 16.1 % (11.5-14.5)
[2018-07-30 06:35] LABS: ALT/SGPT 49 U/l (0-40); Albumin 2.7 gm/dL (3.2-5.2); Albumin/Globulin Ratio 0.9 (1.0-2.3); Alkaline Phosphatase 117 U/L (39-117); Bilirubin,Direct 0.4 mg/dL (0.0-0.3); Blood Urea Nitrogen 9 mg/dl (8-23); Gamma Glutamyl Transpeptidase 131 U/L (8-61); Uric Acid 2.5 mg/dL (2.5-8.0)
[2018-07-30] MEDS: OMEPRAZOLE 20 MG CAPSULE PO SCH ×2 (07:40→16:53)
[2018-07-30] MEDS: ACETAMINOPHEN 325 MG TABLET PO PRN (07:43)
[2018-07-30] MEDS: 0.9 % SODIUM CHLORIDE 10 ML SYRINGE IV SCH ×3 (07:49→21:11)
[2018-07-30] MEDS ORDERED: FLEETS ADULT ENEMA PR PRN (08:01)
[2018-07-30] MEDS ORDERED: BISACODYL 10 MG SUPP.RECT PR PRN (08:01)
[2018-07-30] MEDS ORDERED: MAGNESIUM HYDROXIDE 30 ML ORAL.SUSP PO PRN (08:01)
[2018-07-30] MEDS: ERTAPENEM 1 GM in 0.9 % SODIUM CHLORIDE 50 ML IV SCH (08:33)
[2018-07-30] MEDS: ASPIRIN 81 MG TAB.CHEW PO SCH (08:34)
[2018-07-30] MEDS: ENOXAPARIN 40 MG/0.4 ML SYRINGE SQ SCH (08:34)
[2018-07-30] MEDS: DOCUSATE SODIUM 100 MG CAPSULE PO SCH ×2 (08:34→21:10)
[2018-07-30] MEDS: ATORVASTATIN 20 MG TABLET PO SCH (08:34)
[2018-07-30] MEDS: GABAPENTIN 300 MG CAPSULE PO SCH ×2 (08:41→21:10)
[2018-07-30] MEDS: NICOTINE 7 MG PATCH TOPICAL SCH (10:34)
--- NOTE | 2018-07-30 12:04 | Internal Med Progress Note ---
Medical - PN: Subj Patient information: Note initiated : 07/30/18 at 12:02 pm Service Date, if different from initiated Date: [] Patient: Mando Valdez 63 y/o M admitted on 07/28/18 for COPD, pneumonia. Chief Complaint: [] Interval history: 07/28 Mr. Valdez is a 63 year old M with a history of COPD, tobacco abuse, peptic sleep apnea on CPAP, reflux, coronary disease and osteoarthritis who had a reverse left total shoulder done on Wednesday of this week, who presents from [facility] with acute respiratory infection. The patient was discharged from the hospital on Wednesday. They live out of [facility] in [place] overnight Wednesday. He developed some labored breathing. The next morning he was about the same, however they went home. He subsequently continued to have labored breathing, developed fever up to 101.5. He became lethargic, decreased appetite, more fatigued and experiencing body aches in his upper body. He was using his incentive spirometer, he was driving 2500 mL on the hospital, could only get inspiratory volume to 500 mL's by the time they presented to the hospital. Today he continued to have fever, was fatigued and falling asleep or trying to eat, was dyspneic. His home oxygen saturation was about 70%. He received a DuoNeb, this increased to 73%. He did have a tank of oxygen at home (he does not routinely use oxygen) and they presented to [facility]. There is temperature was [id number]. Pulse is in the 90s. Saturations on room air were in the low 80s. White count was elevated at 13.7, electrolytes and renal function were normal. Chest radiograph, reports reads "Bilateral perihilar fullness and bilateral pulmonary opacities. The appearance is nonspecific but can be seen in setting of pulmonary edema, diffuse pneumonitis, atypical infection." He was still experiencing significant dyspnea which improved to some degree after breathing treatments. He is transferred to [facility] for hospitalization for COPD exacerbation with pneumonia, meeting sepsis criteria with fever, white count, tachypnea, hypoxia and suspected infection. 07/29 Feels improved this morning, though still short of breath. No fever or chills. Requiring oxygen today. 07/30-patient doing well. No overnight events. No concerns per staff. On 2 L oxygen. On broad antibiotic coverage-ertapenem in light of multiple allergies. Clinically improving. Ongoing physical therapy. Continue bronchodilators/nutrition support. No overnight fever chills or concerns per staff. Left shoulder pain in good control. Currently in a sling. On nicotine patch. On bowel protocol. - Constitutional Vitals: Vital Signs Temp Pulse Resp BP Pulse Ox 98.4 F 90 20 119/77 94 07/30/18 11:52 07/30/18 07:33 07/30/18 11:52 07/30/18 11:52 07/30/18 11:52 Period Temp Pulse Resp BP Sys/Sarah Pulse Ox Last 24 Hr 98.4 F-100.1 F 85-104 18-32 109-158/57-101 92-95 Intake and Output 07/29/18 07/30/18 07/30/18 21:59 05:59 13:59 Intake Total 983 530 Output Total 625 420 Balance -625 563 530 Weight 203 lb 1.6 oz Intake & Output: Intake & Output 07/29/18 07/30/18 07/30/18 21:59 05:59 13:59 Intake Total 983 530 Output Total 625 420 Balance -625 563 530 Weight 203 lb 1.6 oz Intake: IV 783 50 Sodium Chloride 0.9% 1,000 ml @ 783 100 mls/hr IV .Q10H [facility] Rx#: [id number] INVanz 1 GM In Sodium Chloride 50 0.9% 50 ml @ 100 mls/hr IV Q24H [facility] Rx#:[id number] Oral 200 480 Output: Void Amount 625 420 Other: Meal Breakfast Percent of Meal Consumed 100% Urine Appearance Clear Urine Color Bright Yellow Light Andra General appearance: no acute distress Exam: Alert oriented nonlabored breathing Left shoulder in sling No anxiety Nondistended abdomen Medical - PN: Obj Da - Labs CBC & Chem 7: 07/30/18 04:10 07/30/18 04:10 Labs: Abnormal Lab Results 07/30/18 07/30/18 07/29/18 04:10 04:10 17:19 WBC 11.8 H RBC 3.80 L 4.05 L Hgb 11.9 L 12.5 L Hct 36.6 L 39.0 L RDW 16.1 H 16.6 H Gran % 82.4 H Lymph % (Auto) 6.9 L 3.4 L Baxter % (Auto) 16.4 H 13.1 H Gran # 9.7 H Lymph # (Auto) 0.7 L 0.4 L Baxter # (Auto) 1.7 H 1.5 H Lymphocytes % WBC Morphology Toxic Granulation Glucose 108 H Calcium 8.2 L Phosphorus 1.7 L Direct Bilirubin 0.4 H GGT 131 H AST 58 H ALT 49 H Lactate Dehydrogenase 333 H Total Protein 5.8 L Albumin 2.7 L Albumin/Globulin Ratio 0.9 L 07/29/18 07/29/18 07/28/18 08:36 08:36 18:05 WBC 12.7 H RBC 4.12 L Hgb 12.8 L Hct 39.7 L RDW 16.1 H Gran % 81.8 H Lymph % (Auto) 4.5 L Baxter % (Auto) 13.0 H Gran # 10.4 H Lymph # (Auto) 0.6 L Baxter # (Auto) 1.7 H Lymphocytes % WBC Morphology Toxic Granulation Glucose 121 H 108 H Calcium 8.5 L Phosphorus 1.6 L 1.6 L Direct Bilirubin 0.4 H GGT 103 H 91 H AST ALT Lactate Dehydrogenase 319 H 357 H Total Protein Albumin 3.0 L Albumin/Globulin Ratio 0.9 L 07/28/18 18:05 WBC 13.4 H RBC 4.20 L Hgb 13.1 L Hct 40.3 L RDW 16.0 H Gran % Lymph % (Auto) Baxter % (Auto) Gran # Lymph # (Auto) Baxter # (Auto) Lymphocytes % 10 L WBC Morphology Abnorm A Toxic Granulation 1+ A Glucose Calcium Phosphorus Direct Bilirubin GGT AST ALT Lactate Dehydrogenase Total Protein Albumin Albumin/Globulin Ratio Meds: Medications Acetaminophen (Tylenol) 650 mg PO Q6HP PRN PRN Reason: PAIN/FEVER > 101 Last Admin: 07/30/18 07:43 Dose: 650 mg Documented by: Hydrocodone Bitart/Acetaminophen ([place] 5/325mg) 1 tab PO Q4HP PRN PRN Reason: PAIN LEVEL 3-6 Last Admin: 07/30/18 01:27 Dose: 1 tab Documented by: Albuterol Sulfate (Ventolin) 2.5 mg NEB Q2HP PRN PRN Reason: Dyspnea Albuterol/Ipratropium (Duoneb) 3 ml NEB Q6HRT [facility] Last Admin: 07/30/18 07:33 Dose: 3 ml Documented by: Aspirin (Aspirin) 81 mg PO QDAY [facility] Last Admin: 07/30/18 08:34 Dose: 81 mg Documented by: Atorvastatin Calcium (Lipitor) 10 mg PO QDAY [facility] Last Admin: 07/30/18 08:34 Dose: 10 mg Documented by: Bisacodyl (Dulcolax) 10 mg [place] Q2-3DAYS PRN PRN Reason: Constipation Docusate Sodium (Colace) 100 mg PO BID [facility] Last Admin: 07/30/18 08:34 Dose: 100 mg Documented by: Enoxaparin Sodium (Lovenox) 40 mg SQ DAILY [facility] Last Admin: 07/30/18 08:34 Dose: 40 mg Documented by: Gabapentin (Neurontin) 600 mg PO BID [facility] Last Admin: 07/30/18 08:41 Dose: 600 mg Documented by: Ertapenem 1 gm/ Sodium (Chloride) 50 mls @ 100 mls/hr IV Q24H [facility] Last Infusion: 07/30/18 09:10 Dose: Infused Documented by: Sodium Chloride (Sodium Chloride 0.9%) 1,000 mls @ 100 mls/hr IV .Q10H [facility] Last Admin: 07/30/18 00:34 Dose: 100 mls/hr Documented by: Magnesium Hydroxide (Milk Of Magnesia) 30 ml PO DAILYP PRN PRN Reason: Constipation Last Admin: 07/30/18 08:34 Dose: 30 ml Documented by: Morphine Sulfate (Morphine) 4 mg IV Q2HP PRN PRN Reason: Chest Pain Naloxone HCl (Narcan) 0.1 mg IV Q2MIN PRN PRN Reason: Opiate Reversal Nicotine (Nicoderm) 7 mg TOPICAL DAILY@1000 [facility] Last Admin: 07/30/18 10:34 Dose: 7 mg Documented by: Omeprazole (Prilosec) 40 mg PO BIDAC [facility] Last Admin: 07/30/18 07:40 Dose: 40 mg Documented by: Ondansetron HCl (Zofran) 4 mg IV Q4HP PRN PRN Reason: Nausea And Vomiting Mometasone Furoate [ (Asmanex]) 2 dose INH BID [facility] Last Admin: 07/30/18 08:35 Dose: 2 dose Documented by: Stiolto Respimat 2 dose INH QAM [facility] Last Admin: 07/30/18 08:35 Dose: 2 dose Documented by: Sodium Biphosphate/Sodium Phosphate (Fleets Adult) 1 dose [place] Q3-4DAYS PRN PRN Reason: Constipation Sodium Chloride (Saline Flush) 10 ml IV Q8 [facility] Last Admin: 07/30/18 07:49 Dose: Not Given Documented by: Medical - PN: A/P - Time Spent With Patient Total time spent is greater than 50% in coordination of care (as documented) at patient's floor/unit and/or counseling patient: 25 - 35 minutes (1) Bilateral pneumonia Status: Acute Assessment and plan: 63-year-old male COPD, tobacco abuse and fairly abrupt onset of pulmonary symptoms Wednesday evening, progressing until he was hypoxic and fatigued with lethargy at home today. Presented to outside hospital with hypoxemia, bronchospasm, leukocytosis and evidence of infiltrates on radiograph. * COPD with exacerbation and pneumonia/sepsis-clinically improving. White count downtrending to 10.3 from 13.4. * Bilateral multifocal nosocomial pneumonia-clinically improving. Continue broad-spectrum coverage on ertapenem * Severe sepsis secondary to above-clinically improving with treatment per protocol * Acute hypoxemic respiratory failure-Improving on 2 L oxygen. * Low phosphorus on replacement * Tobacco abuse-nicotine patch,Smoking cessation counseled * Obstructive sleep apnea-on home CPAP * Gastroesophageal reflux disease-Continue PPI * History of left reverse total shoulder arthroplasty -Wound looks intact, no erythema, no edema, do not suspect source of infection -Dr. Santo aware of admission. Continue with immobilizer. Continue physical therapy * Prophylaxis: Lovenox * CODE STATUS: Full code Plan * Broad antibiotic coverage * Pulmonary toilet * Phosphorus replacement * PT OT/nutrition support * Wean oxygen as tolerated * smoking cessation counseling Current Visit: Yes Medical - PN: Qual - VTE Deep Vein Thrombosis/Pulmonary Embolism Present on Admission: No
[2018-07-30] MEDS: NEUTRA PHOS 1 PACKET PO SCH (21:11)
[2018-07-31] MEDS: IPRATROPIUM/ALBUTEROL 3 ML AMPUL.NEB NEB SCH ×4 (01:09→18:29)
[2018-07-31] MEDS: ACETAMINOPHEN 325 MG TABLET PO PRN (04:05)
[2018-07-31] MEDS: 0.9 % SODIUM CHLORIDE 10 ML SYRINGE IV SCH ×3 (05:09→21:50)
[2018-07-31 05:19] LABS: Basophils # (Auto) 0.1 K/mcL (0.0-0.3); Basophils % (Auto) 0.8 % (0.0-2.0); Eosinophils # (Auto) 0.3 K/mcL (0.0-0.7); Eosinophils % (Auto) 3.8 % (0.0-7.0); Granulocytes % (Auto) 66.1 % (38.0-78.0); Lymphocytes # (Auto) 0.8 K/mcL (1.5-4.8); Lymphocytes % (Auto) 10.1 % (15.5-49.0); Mean Cell Volume 95.3 fL (80.0-100.0); Mean Corpuscular HGB Conc 32.9 g/dL (31.0-36.0); Monocytes # (Auto) 1.5 K/mcL (0.1-0.9); Monocytes % (Auto) 19.2 % (1.0-12.0); Platelet Count 260 K/mcL (140-440); RBC 3.92 M/mcL (4.50-5.90); Red Cell Distribution Width 16.4 % (11.5-14.5)
[2018-07-31 05:44] LABS: ALT/SGPT 148 U/l (0-40); Albumin 2.8 gm/dL (3.2-5.2); Albumin/Globulin Ratio 0.8 (1.0-2.3); Alkaline Phosphatase 183 U/L (39-117); Bilirubin,Direct 0.3 mg/dL (0.0-0.3); Blood Urea Nitrogen 9 mg/dl (8-23); Gamma Glutamyl Transpeptidase 227 U/L (8-61); Uric Acid 2.6 mg/dL (2.5-8.0)
[2018-07-31] MEDS: OMEPRAZOLE 20 MG CAPSULE PO SCH ×2 (07:03→16:37)
[2018-07-31] MEDS: ERTAPENEM 1 GM in 0.9 % SODIUM CHLORIDE 50 ML IV SCH (08:11)
[2018-07-31] MEDS: ENOXAPARIN 40 MG/0.4 ML SYRINGE SQ SCH (08:11)
[2018-07-31] MEDS: DOCUSATE SODIUM 100 MG CAPSULE PO SCH ×2 (08:12→20:17)
[2018-07-31] MEDS: ATORVASTATIN 20 MG TABLET PO SCH (08:12)
[2018-07-31] MEDS: NEUTRA PHOS 1 PACKET PO SCH ×2 (08:12→20:16)
[2018-07-31] MEDS: ASPIRIN 81 MG TAB.CHEW PO SCH (08:12)
[2018-07-31] MEDS: GABAPENTIN 300 MG CAPSULE PO SCH ×2 (08:12→20:16)
[2018-07-31] MEDS: MOMETASONE FUROATE INH SCH ×2 (08:13→20:18)
[2018-07-31] MEDS: HYDROcodone/APAP 5/325MG TABLET PO PRN ×4 (08:42→20:17)
[2018-07-31] MEDS: 0.9 % SODIUM CHLORIDE 1,000 ML IV SCH ×2 (09:38→19:33)
[2018-07-31] MEDS: NICOTINE 7 MG PATCH TOPICAL SCH (09:38)
--- NOTE | 2018-07-31 11:44 | Internal Med Progress Note ---
Medical - PN: Subj Patient information: Note initiated : 07/31/18 at 11:39 am Service Date, if different from initiated Date: [] Patient: Mando Valdez 63 y/o M admitted on 07/28/18 for COPD, pneumonia. Chief Complaint: [] Interval history: 07/28 Mr. Valdez is a 63 year old M with a history of COPD, tobacco abuse, peptic sleep apnea on CPAP, reflux, coronary disease and osteoarthritis who had a reverse left total shoulder done on Wednesday of this week, who presents from [facility] with acute respiratory infection. The patient was discharged from the hospital on Wednesday. They live out of [facility] in [place] overnight Wednesday. He developed some labored breathing. The next morning he was about the same, however they went home. He subsequently continued to have labored breathing, developed fever up to 101.5. He became lethargic, decreased appetite, more fatigued and experiencing body aches in his upper body. He was using his incentive spirometer, he was driving 2500 mL on the hospital, could only get inspiratory volume to 500 mL's by the time they presented to the hospital. Today he continued to have fever, was fatigued and falling asleep or trying to eat, was dyspneic. His home oxygen saturation was about 70%. He received a DuoNeb, this increased to 73%. He did have a tank of oxygen at home (he does not routinely use oxygen) and they presented to [facility]. There is temperature was [id number]. Pulse is in the 90s. Saturations on room air were in the low 80s. White count was elevated at 13.7, electrolytes and renal function were normal. Chest radiograph, reports reads "Bilateral perihilar fullness and bilateral pulmonary opacities. The appearance is nonspecific but can be seen in setting of pulmonary edema, diffuse pneumonitis, atypical infection." He was still experiencing significant dyspnea which improved to some degree after breathing treatments. He is transferred to [facility] for hospitalization for COPD exacerbation with pneumonia, meeting sepsis criteria with fever, white count, tachypnea, hypoxia and suspected infection. 07/29 Feels improved this morning, though still short of breath. No fever or chills. Requiring oxygen today. 07/30-patient doing well. No overnight events. No concerns per staff. On 2 L oxygen. On broad antibiotic coverage-ertapenem in light of multiple allergies. Clinically improving. Ongoing physical therapy. Continue bronchodilators/nutrition support. No overnight fever chills or concerns per staff. Left shoulder pain in good control. Currently in a sling. On nicotine patch. On bowel protocol. 07/31-patient doing well. at bedside. On room air now. White count downtrending to 8000. Feels a lot better. Patient will continue IV antibiotics and discharge at patient infusion. Ongoing physical therapy/nutrition support. Patient insists that diet be changed to regular instead of low-salt. No overnight fever or concerns per staff - Constitutional Vitals: Vital Signs Temp Pulse Resp BP Pulse Ox 99.1 F H 79 20 133/80 93 07/31/18 10:00 07/31/18 10:00 07/31/18 10:00 07/31/18 10:00 07/31/18 10:00 Period Temp Pulse Resp BP Sys/Sarah Pulse Ox Last 24 Hr 98.4 F-99.4 F 74-92 16-28 115-146/73-81 91-96 Intake and Output 07/30/18 07/31/18 07/31/18 21:59 05:59 13:59 Intake Total 440 1250 1050 Output Total 1150 975 600 Balance -710 275 450 Weight 193 lb 6.4 oz Intake & Output: Intake & Output 07/30/18 07/31/18 07/31/18 21:59 05:59 13:59 Intake Total 440 1250 1050 Output Total 1150 975 600 Balance -710 275 450 Weight 193 lb 6.4 oz Intake: IV 1000 1050 Sodium Chloride 0.9% 1,000 ml @ 1000 1000 100 mls/hr IV .Q10H [facility]TE Rx#: [id number] INVanz 1 GM In Sodium Chloride 50 0.9% 50 ml @ 100 mls/hr IV Q24H UTE Rx#:[id number] Oral 440 250 Output: Void Amount 1150 975 600 Other: Meal Breakfast Percent of Meal Consumed 100% Urine Appearance Clear Clear Urine Color Dark Yellow Light [place]ra Urine Odor Normal Normal # Voids 6 1 1 # Bowel Movements 1 General appearance: no acute distress Exam: Alert oriented Nonlabored breathing Nondistended abdomen No anxiety Medical - PN: Obj Da - Labs CBC & Chem 7: 07/31/18 04:07/31/18 04:10 Labs: Abnormal Lab Results 07/31/18 07/31/18 07/30/18 04:10 04:10 04:10 WBC RBC 3.92 L 3.80 L Hgb 12.3 L 11.9 L Hct 37.4 L 36.6 L RDW 16.4 H 16.1 H Gran % Lymph % (Auto) 10.1 L 6.9 L [place] % (Auto) 19.2 H 16.4 H Gran # Lymph # (Auto) 0.8 L 0.7 L [place] # (Auto) 1.5 H 1.7 H Lymphocytes % WBC Morphology Toxic Granulation Glucose 113 H Calcium 8.2 L Phosphorus 2.4 L Direct Bilirubin GGT 227 H AST 151 H ALT 148 H Alkaline Phosphatase 183 H Lactate Dehydrogenase 320 H Total Protein Albumin 2.8 L Albumin/Globulin Ratio 0.8 L Triglycerides 205 H 07/30/18 07/29/18 07/29/18 04:10 17:19 08:36 WBC 11.8 H RBC 4.05 L Hgb 12.5 L Hct 39.0 L RDW 16.6 H Gran % 82.4 H Lymph % (Auto) 3.4 L [place] % (Auto) 13.1 H Gran # 9.7 H Lymph # (Auto) 0.4 L [place] # (Auto) 1.5 H Lymphocytes % WBC Morphology Toxic Granulation Glucose 108 H 121 H Calcium 8.2 L Phosphorus 1.7 L 1.6 L Direct Bilirubin 0.4 H 0.4 H GGT 131 H 103 H AST 58 H ALT 49 H Alkaline Phosphatase Lactate Dehydrogenase 333 H 319 H Total Protein 5.8 L Albumin 2.7 L Albumin/Globulin Ratio 0.9 L Triglycerides 07/29/18 07/28/18 07/28/18 08:36 18:05 18:05 WBC 12.7 H 13.4 H RBC 4.12 L 4.20 L Hgb 12.8 L 13.1 L Hct 39.7 L 40.3 L RDW 16.1 H 16.0 H Gran % 81.8 H Lymph % (Auto) 4.5 L [place] % (Auto) 13.0 H Gran # 10.4 H Lymph # (Auto) 0.6 L [place] # (Auto) 1.7 H Lymphocytes % 10 L WBC Morphology Abnorm A Toxic Granulation 1+ A Glucose 108 H Calcium 8.5 L Phosphorus 1.6 L Direct Bilirubin GGT 91 H AST ALT Alkaline Phosphatase Lactate Dehydrogenase 357 H Total Protein Albumin 3.0 L Albumin/Globulin Ratio 0.9 L Triglycerides Meds: Medications Acetaminophen (Tylenol) 650 mg PO Q6HP PRN PRN Reason: PAIN/FEVER > 101 Last Admin: 07/31/18 04:05 Dose: 650 mg Documented by: Hydrocodone Bitart/Acetaminophen ([place] 5/325mg) 1 tab PO Q4HP PRN PRN Reason: PAIN LEVEL 3-6 Last Admin: 07/31/18 08:42 Dose: 1 tab Documented by: Albuterol Sulfate (Ventolin) 2.5 mg NEB Q2HP PRN PRN Reason: Dyspnea Albuterol/Ipratropium (Duoneb) 3 ml NEB Q6HRT [facility] Last Admin: 07/31/18 08:21 Dose: 3 ml Documented by: Aspirin (Aspirin) 81 mg PO QDAY [facility] Last Admin: 07/31/18 08:12 Dose: 81 mg Documented by: Atorvastatin Calcium (Lipitor) 10 mg PO QDAY [facility] Last Admin: 07/31/18 08:12 Dose: 10 mg Documented by: Bisacodyl (Dulcolax) 10 mg [place] Q2-3DAYS PRN PRN Reason: Constipation Docusate Sodium (Colace) 100 mg PO BID [facility] Last Admin: 07/31/18 08:12 Dose: 100 mg Documented by: Enoxaparin Sodium (Lovenox) 40 mg SQ DAILY [facility] Last Admin: 07/31/18 08:11 Dose: 40 mg Documented by: Gabapentin (Neurontin) 600 mg PO BID [facility] Last Admin: 07/31/18 08:12 Dose: 600 mg Documented by: Ertapenem 1 gm/ Sodium (Chloride) 50 mls @ 100 mls/hr IV Q24H [facility] Last Infusion: 07/31/18 08:50 Dose: Infused Documented by: Sodium Chloride (Sodium Chloride 0.9%) 1,000 mls @ 100 mls/hr IV .Q10H [facility] Last Admin: 07/31/18 09:38 Dose: 100 mls/hr Documented by: Magnesium Hydroxide (Milk Of Magnesia) 30 ml PO DAILYP PRN PRN Reason: Constipation Last Admin: 07/30/18 08:34 Dose: 30 ml Documented by: Morphine Sulfate (Morphine) 4 mg IV Q2HP PRN PRN Reason: Chest Pain Naloxone HCl (Narcan) 0.1 mg IV Q2MIN PRN PRN Reason: Opiate Reversal Nicotine (Nicoderm) 7 mg TOPICAL DAILY@1000 [facility] Last Admin: 07/31/18 09:38 Dose: 7 mg Documented by: Omeprazole (Prilosec) 40 mg PO BIDAC [facility] Last Admin: 07/31/18 07:03 Dose: 40 mg Documented by: Ondansetron HCl (Zofran) 4 mg IV Q4HP PRN PRN Reason: Nausea And Vomiting Mometasone Furoate [ (Asmanex]) 2 dose INH BID [facility] Last Admin: 07/31/18 08:13 Dose: 2 dose Documented by: Stiolmike Respimat 2 dose INH QAM [facility] Last Admin: 07/31/18 08:12 Dose: 2 dose Documented by: Potassium/Phosphorus/Sodium (Neutra Phos) 2 packet PO BID [facility] Last Admin: 07/31/18 08:12 Dose: 2 packet Documented by: Sodium Biphosphate/Sodium Phosphate (Fleets Adult) 1 dose [place] Q3-4DAYS PRN PRN Reason: Constipation Sodium Chloride (Saline Flush) 10 ml IV Q8 [facility] Last Admin: 07/31/18 05:09 Dose: Not Given Documented by: Medical - PN: A/P - Time Spent With Patient Total time spent is greater than 50% in coordination of care (as documented) at patient's floor/unit and/or counseling patient: 25 - 35 minutes (1) Bilateral pneumonia Status: Acute Assessment and plan: 63-year-old male COPD, tobacco abuse and fairly abrupt onset of pulmonary symptoms Wednesday evening, progressing until he was hypoxic and fatigued with lethargy at home today. Presented to outside hospital with hypoxemia, bronchospasm, leukocytosis and evidence of infiltrates on radiograph. * COPD with exacerbation -clinically improving. Continue bronchodilators/pulmonary toilet * Bilateral multifocal nosocomial pneumonia-clinically improving. Continue ertapenem day * Severe sepsis secondary to above-clinically improving with treatment per protocol. White count down to 8000 from 13.4 * Elevated LFTs likely sepsis endorgan effect. Right upper quadrant ultrasound to rule out acute process * Acute hypoxemic respiratory failure-resolved now on room air * Low phosphorus on replacement, improved to 2.4 from 1.6 * Tobacco abuse-nicotine patch,Smoking cessation counseled * Obstructive sleep apnea-continue home CPAP * Gastroesophageal reflux disease-Continue PPI * History of left reverse total shoulder arthroplasty-Dr. Santo aware of admission. Continue with immobilizer. Continue physical therapy * Prophylaxis: Lovenox * CODE STATUS: Full code Plan * Continue ertapenem through 08/05 * Right upper quadrant ultrasound * Bronchodilators * Aggressive PT OT * Continue phosphorus replacement * Change diet to 2 g sodium * Discharge planning Current Visit: Yes Medical - PN: Qual - VTE Deep Vein Thrombosis/Pulmonary Embolism Present on Admission: No
--- NOTE | 2018-07-31 20:08 | Ultrasound Report ---
History: Elevated liver enzymes FINDINGS: Liver is upper limits of normal in size. Inferiorly in the right lobe of liver there is very poorly defined hyperechoic infiltrative lesion. It measures roughly 1.9 x 2.8 x 3.3 cm. Doppler shows it is not hypervascular. The remainder the liver is homogeneous. The gallbladder is normal with no stones or thickening of the wall. The common bile duct measures 4.4 mm. Pancreas is normal in size and homogeneous. The right kidney is normal in size shape and contour and there is no right renal mass, cyst, calculus or hydronephrosis. No ascites is present IMPRESSION: Nonspecific infiltrative lesion inferiorly in the right lobe of liver. Upper abdominal MRI would be recommended for further evaluation. Interpreted and Authenticated by: Parrish Jiang 07/31/18
[2018-07-31] MEDS: OLODATEROL HCL INH SCH (21:49)
[2018-07-31] MEDS: TIOTROPIUM BR INH SCH (21:49)
[2018-08-01] MEDS: IPRATROPIUM/ALBUTEROL 3 ML AMPUL.NEB NEB SCH ×4 (00:35→18:28)
[2018-08-01] MEDS: ACETAMINOPHEN 325 MG TABLET PO PRN (00:52)
[2018-08-01] MEDS: 0.9 % SODIUM CHLORIDE 1,000 ML IV SCH ×2 (05:33→17:11)
[2018-08-01] MEDS: 0.9 % SODIUM CHLORIDE 10 ML SYRINGE IV SCH ×3 (05:33→21:43)
[2018-08-01 06:50] LABS: ALT/SGPT 166 U/l (0-40); Albumin 2.9 gm/dL (3.2-5.2); Alkaline Phosphatase 204 U/L (39-117); Bilirubin,Direct < 0.2 mg/dL (0.0-0.3); Blood Urea Nitrogen 12 mg/dl (8-23); Gamma Glutamyl Transpeptidase 257 U/L (8-61); Uric Acid 2.9 mg/dL (2.5-8.0)
[2018-08-01] MEDS: ATORVASTATIN 20 MG TABLET PO SCH (08:13)
[2018-08-01] MEDS: ASPIRIN 81 MG TAB.CHEW PO SCH (08:14)
[2018-08-01] MEDS: OMEPRAZOLE 20 MG CAPSULE PO SCH ×2 (08:14→17:09)
[2018-08-01] MEDS: NEUTRA PHOS 1 PACKET PO SCH ×2 (08:14→21:41)
[2018-08-01] MEDS: ENOXAPARIN 40 MG/0.4 ML SYRINGE SQ SCH (08:14)
[2018-08-01] MEDS: NICOTINE 7 MG PATCH TOPICAL SCH (08:14)
[2018-08-01] MEDS: TIOTROPIUM BR INH SCH ×2 (08:15→21:42)
[2018-08-01] MEDS: OLODATEROL HCL INH SCH ×2 (08:15→21:42)
[2018-08-01] MEDS: MOMETASONE FUROATE INH SCH ×2 (08:15→21:42)
[2018-08-01] MEDS: GABAPENTIN 300 MG CAPSULE PO SCH ×2 (08:15→21:41)
[2018-08-01] MEDS: HYDROcodone/APAP 5/325MG TABLET PO PRN ×4 (08:16→21:41)
[2018-08-01] MEDS: DOCUSATE SODIUM 100 MG CAPSULE PO SCH ×2 (08:16→21:41)
[2018-08-01] MEDS: ERTAPENEM 1 GM in 0.9 % SODIUM CHLORIDE 50 ML IV SCH (08:16)
[2018-08-01] MEDS ORDERED: GADOBENATE DIMEGLUMINE 20 ML/VIAL IV ONE (15:45)
--- NOTE | 2018-08-01 17:40 | Magnetic Resonance Report ---
CLINICAL INFORMATION: Abnormal abdominal ultrasound. Possible infiltrative lesion in the inferior right lobe of the liver. Abnormal liver enzymes TECHNIQUE: Sagittal, axial, coronal images of the abdomen. 17 mL MultiHance injected intravenously. Dynamic axial images through the liver obtained COMPARISON: Previous abdominal ultrasound dated 07/31/2018 FINDINGS: Previous examination demonstrated a possible infiltrative abnormality in inferior right lobe of the liver. There is no corresponding abnormality identified on MRI scan. No solid or cystic mass. No pathologic enhancement or washout. No focal hepatic abnormality identified. Liver contour is smooth. No evidence for cirrhosis. Gallbladder is present. No intraluminal filling defects. No dilated bile ducts. Pancreas is negative. No pancreatic mass. No peripancreatic abnormality. Pancreatic duct is normal without dilatation. Spleen is negative. No splenic or portal vein thrombosis. Negative adrenal glands. Negative kidneys. No solid or cystic mass. No hydronephrosis. IMPRESSION: 1. Negative contrast enhanced examination of the liver. No focal mass. No focal abnormality. 2. Negative abdominal MRI scan Interpreted and Authenticated by: Logan Crisostomo 08/01/18
--- NOTE | 2018-08-01 22:28 | Internal Med Progress Note ---
Medical - PN: Subj Patient information: Note initiated : 08/01/18 at 10:26 pm Service Date, if different from initiated Date: [] Patient: Mando Valdez 63 y/o M admitted on 07/28/18 for COPD, pneumonia. Chief Complaint: [] Interval history: 07/28 Mr. Valdez is a 63 year old M with a history of COPD, tobacco abuse, peptic sleep apnea on CPAP, reflux, coronary disease and osteoarthritis who had a reverse left total shoulder done on Wednesday of this week, who presents from [facility] with acute respiratory infection. The patient was discharged from the hospital on Wednesday. They live out of [facility] in [place] overnight Wednesday. He developed some labored breathing. The next morning he was about the same, however they went home. He subsequently continued to have labored breathing, developed fever up to 101.5. He became lethargic, decreased appetite, more fatigued and experiencing body aches in his upper body. He was using his incentive spirometer, he was driving 2500 mL on the hospital, could only get inspiratory volume to 500 mL's by the time they presented to the hospital. Today he continued to have fever, was fatigued and falling asleep or trying to eat, was dyspneic. His home oxygen saturation was about 70%. He received a DuoNeb, this increased to 73%. He did have a tank of oxygen at home (he does not routinely use oxygen) and they presented to [facility]. There is temperature was [id number]. Pulse is in the 90s. Saturations on room air were in the low 80s. White count was elevated at 13.7, electrolytes and renal function were normal. Chest radiograph, reports reads "Bilateral perihilar fullness and bilateral pulmonary opacities. The appearance is nonspecific but can be seen in setting of pulmonary edema, diffuse pneumonitis, atypical infection." He was still experiencing significant dyspnea which improved to some degree after breathing treatments. He is transferred to [facility] for hospitalization for COPD exacerbation with pneumonia, meeting sepsis criteria with fever, white count, tachypnea, hypoxia and suspected infection. 07/29 Feels improved this morning, though still short of breath. No fever or chills. Requiring oxygen today. 07/30-patient doing well. No overnight events. No concerns per staff. On 2 L oxygen. On broad antibiotic coverage-ertapenem in light of multiple allergies. Clinically improving. Ongoing physical therapy. Continue bronchodilators/nutrition support. No overnight fever chills or concerns per staff. Left shoulder pain in good control. Currently in a sling. On nicotine patch. On bowel protocol. 07/31-patient doing well. at bedside. On room air now. White count downtrending to 8000. Feels a lot better. Patient will continue IV antibiotics and discharge at patient infusion. Ongoing physical therapy/nutrition support. Patient insists that diet be changed to regular instead of low-salt. No overnight fever or concerns per staff 08/01-patient doing better however persistent elevation in LFTs. Ultrasound gallbladder reveals right lower lobe lesion and recommends MRI. at bed side. No overnight events. Tolerating diet and ambulating. Left shoulder pain improved. Arm in sling. No concerns expressed by nursing staff. - Constitutional Vitals: Vital Signs Temp Pulse Resp BP Pulse Ox 99.2 F H 84 20 120/68 90 08/01/18 19:34 08/01/18 20:39 08/01/18 20:39 08/01/18 19:34 08/01/18 19:34 Period Temp Pulse Resp BP Sys/Sarah Pulse Ox Last 24 Hr 97.7 F-99.2 F 73-91 18-24 114-131/68-87 90-92 Intake and Output 08/01/18 08/01/18 08/02/18 13:59 21:59 05:59 Intake Total 290 1400 Output Total 850 550 Balance -560 850 Intake & Output: Intake & Output 08/01/18 08/01/18 08/02/18 13:59 21:59 05:59 Intake Total 290 1400 Output Total 850 550 Balance -560 850 Intake: IV 50 1000 Sodium Chloride 0.9% 1,000 ml @ 1000 100 mls/hr IV .Q10H [facility] Rx#: [id number] INVanz 1 GM In Sodium Chloride 50 0.9% 50 ml @ 100 mls/hr IV Q24H [facility] Rx#:[id number] Oral 240 400 Output: Void Amount 850 550 Other: Meal Breakfast Percent of Meal Consumed 100% Feeding Ability Independent Urine Appearance Clear Urine Color Bright Yellow Urine Odor Normal Stool Size Moderate Stool Color Brown Stool Consistency Liquid Loose # Bowel Movements 1 General appearance: no acute distress Exam: Alert oriented No labored breathing nondistended abdomen Left arm in sling No anxiety Medical - PN: Obj Da - Labs CBC & Chem 7: 07/31/18 04:10 08/01/18 04:15 Labs: Abnormal Lab Results 08/01/18 07/31/18 07/31/18 04:15 04:10 04:10 RBC 3.92 L Hgb 12.3 L Hct 37.4 L RDW 16.4 H Lymph % (Auto) 10.1 L [place] % (Auto) 19.2 H Lymph # (Auto) 0.8 L [place] # (Auto) 1.5 H Glucose 113 H Calcium 8.3 L 8.2 L Phosphorus 2.4 L Direct Bilirubin GGT 257 H 227 H AST 133 H 151 H ALT 166 H 148 H Alkaline Phosphatase 204 H 183 H Lactate Dehydrogenase 328 H 320 H Total Protein Albumin 2.9 L 2.8 L Albumin/Globulin Ratio 0.8 L Triglycerides 205 H 07/30/18 07/30/18 04:10 04:10 RBC 3.80 L Hgb 11.9 L Hct 36.6 L RDW 16.1 H Lymph % (Auto) 6.9 L [place] % (Auto) 16.4 H Lymph # (Auto) 0.7 L [place] # (Auto) 1.7 H Glucose 108 H Calcium 8.2 L Phosphorus 1.7 L Direct Bilirubin 0.4 H GGT 131 H AST 58 H ALT 49 H Alkaline Phosphatase Lactate Dehydrogenase 333 H Total Protein 5.8 L Albumin 2.7 L Albumin/Globulin Ratio 0.9 L Triglycerides Meds: Medications Acetaminophen (Tylenol) 650 mg PO Q6HP PRN PRN Reason: PAIN/FEVER > 101 Last Admin: 08/01/18 00:52 Dose: 650 mg Documented by: Hydrocodone Bitart/Acetaminophen ([place] 5/325mg) 1 tab PO Q4HP PRN PRN Reason: PAIN LEVEL 3-6 Last Admin: 08/01/18 21:41 Dose: 1 tab Documented by: Albuterol Sulfate (Ventolin) 2.5 mg NEB Q2HP PRN PRN Reason: Dyspnea Albuterol/Ipratropium (Duoneb) 3 ml NEB Q6HRT [facility] Last Admin: 08/01/18 18:28 Dose: 3 ml Documented by: Aspirin (Aspirin) 81 mg PO QDAY [facility] Last Admin: 08/01/18 08:14 Dose: 81 mg Documented by: Atorvastatin Calcium (Lipitor) 10 mg PO QDAY [facility] Last Admin: 08/01/18 08:13 Dose: 10 mg Documented by: Bisacodyl (Dulcolax) 10 mg [place] Q2-3DAYS PRN PRN Reason: Constipation Docusate Sodium (Colace) 100 mg PO BID [facility] Last Admin: 08/01/18 21:41 Dose: 100 mg Documented by: Enoxaparin Sodium (Lovenox) 40 mg SQ DAILY [facility] Last Admin: 08/01/18 08:14 Dose: 40 mg Documented by: Gabapentin (Neurontin) 600 mg PO BID [facility] Last Admin: 08/01/18 21:41 Dose: 600 mg Documented by: Ertapenem 1 gm/ Sodium (Chloride) 50 mls @ 100 mls/hr IV Q24H [facility] Last Infusion: 08/01/18 12:07 Dose: Infused Documented by: Sodium Chloride (Sodium Chloride 0.9%) 1,000 mls @ 100 mls/hr IV .Q10H [facility] Last Admin: 08/01/18 17:11 Dose: 100 mls/hr Documented by: Magnesium Hydroxide (Milk Of Magnesia) 30 ml PO DAILYP PRN PRN Reason: Constipation Last Admin: 07/30/18 08:34 Dose: 30 ml Documented by: Morphine Sulfate (Morphine) 4 mg IV Q2HP PRN PRN Reason: Chest Pain Naloxone HCl (Narcan) 0.1 mg IV Q2MIN PRN PRN Reason: Opiate Reversal Nicotine (Nicoderm) 7 mg TOPICAL DAILY@1000 [facility] Last Admin: 08/01/18 08:14 Dose: 7 mg Documented by: Omeprazole (Prilosec) 40 mg PO BIDAC [facility] Last Admin: 08/01/18 17:09 Dose: 40 mg Documented by: Ondansetron HCl (Zofran) 4 mg IV Q4HP PRN PRN Reason: Nausea And Vomiting Mometasone Furoate [ (Asmanex]) 2 dose INH BID [facility] Last Admin: 08/01/18 21:42 Dose: 2 dose Documented by: Tiotropium Br/Olodaterol Hcl ( Stiolto Respimat Inhal [place]) Inhaler 1 dose INH BID [facility] Last Admin: 08/01/18 21:42 Dose: 1 dose Documented by: Potassium/Phosphorus/Sodium (Neutra Phos) 2 packet PO BID [facility] Last Admin: 08/01/18 21:41 Dose: 2 packet Documented by: Sodium Biphosphate/Sodium Phosphate (Fleets Adult) 1 dose [place] Q3-4DAYS PRN PRN Reason: Constipation Sodium Chloride (Saline Flush) 10 ml IV Q8 [facility] Last Admin: 08/01/18 21:43 Dose: Not Given Documented by: Medical - PN: A/P - Time Spent With Patient Total time spent is greater than 50% in coordination of care (as documented) at patient's floor/unit and/or counseling patient: 15 - 24 minutes (1) Bilateral pneumonia Status: Acute Assessment and plan: 63-year-old male COPD, tobacco abuse and fairly abrupt onset of pulmonary symptoms Wednesday evening, progressing until he was hypoxic and fatigued with lethargy at home today. Presented to outside hospital with hypoxemia, bronchospasm, leukocytosis and evidence of infiltrates on radiograph. * COPD with exacerbation -clinically improving. Continue b ronchodilators/pulmonary toilet * Bilateral multifocal nosocomial pneumonia-clinically improving. Continue ertapenem day 09/26 * Severe sepsis secondary to above-clinically improving with treatment per p rotocol. White count normalized * Elevated LFTs/right lower lobe lesion on ultrasound. MRI today. * Acute hypoxemic respiratory failure-resolved * Low phosphorus -improving with replacement * Tobacco abuse-nicotine patch,Smoking cessation counseled * Obstructive sleep apnea-continue home CPAP * Gastroesophageal reflux disease-Continue PPI * History of left reverse total shoulder arthroplasty-Dr. Santo aware of admission. Continue with immobilizer. Continue physical therapy * Prophylaxis: Lovenox * CODE STATUS: Full code Plan * Continue ertapenem through 08/05 * MRI abdomen * Aggressive PT OT/ambulation * Continue phosphorus replacement * Low-sodium diet * Discharge planning likely in 24 hours Current Visit: Yes Medical - PN: Qual - VTE Deep Vein Thrombosis/Pulmonary Embolism Present on Admission: No
[2018-08-02] MEDS: IPRATROPIUM/ALBUTEROL 3 ML AMPUL.NEB NEB SCH ×2 (00:40→06:51)
[2018-08-02] MEDS: 0.9 % SODIUM CHLORIDE 1,000 ML IV SCH ×2 (03:20→10:48)
[2018-08-02] MEDS: 0.9 % SODIUM CHLORIDE 10 ML SYRINGE IV SCH ×2 (07:10→13:12)
[2018-08-02] MEDS: OMEPRAZOLE 20 MG CAPSULE PO SCH (07:10)
[2018-08-02] MEDS: ASPIRIN 81 MG TAB.CHEW PO SCH (07:11)
[2018-08-02] MEDS: HYDROcodone/APAP 5/325MG TABLET PO PRN ×2 (07:11→11:39)
[2018-08-02] MEDS: ATORVASTATIN 20 MG TABLET PO SCH (07:11)
[2018-08-02] MEDS: GABAPENTIN 300 MG CAPSULE PO SCH (07:11)
[2018-08-02] MEDS: DOCUSATE SODIUM 100 MG CAPSULE PO SCH (07:12)
[2018-08-02] MEDS: TIOTROPIUM BR INH SCH (07:12)
[2018-08-02] MEDS: OLODATEROL HCL INH SCH (07:12)
[2018-08-02] MEDS: NEUTRA PHOS 1 PACKET PO SCH (07:12)
[2018-08-02] MEDS: MOMETASONE FUROATE INH SCH (07:12)
[2018-08-02 07:15] LABS: ALT/SGPT 123 U/l (0-40); Albumin 2.7 gm/dL (3.2-5.2); Albumin/Globulin Ratio 0.9 (1.0-2.3); Alkaline Phosphatase 191 U/L (39-117); Bilirubin,Direct < 0.2 mg/dL (0.0-0.3); Blood Urea Nitrogen 11 mg/dl (8-23); Gamma Glutamyl Transpeptidase 220 U/L (8-61); Uric Acid 3.5 mg/dL (2.5-8.0)
[2018-08-02] MEDS: ERTAPENEM 1 GM in 0.9 % SODIUM CHLORIDE 50 ML IV SCH (08:23)
[2018-08-02] MEDS: NICOTINE 7 MG PATCH TOPICAL SCH (08:23)
[2018-08-02] MEDS: ENOXAPARIN 40 MG/0.4 ML SYRINGE SQ SCH (08:23)
[2018-08-02] MEDS ORDERED: IPRATROPIUM/ALBUTEROL 3 ML AMPUL.NEB NEB PRN (09:53)
--- NOTE | 2018-08-02 12:20 | Discharge Summary ---
Medical - DS: Prov Patient information: Note initiated : 08/02/18 at 12:16 pm Service Date, if different from initiated Date: [] Patient: Mando Valdez 63 y/o M admitted on 07/28/18 for COPD, pneumonia. Chief Complaint: [] Date of admission: 07/28/18 16:24 Discharge date: 08/02/18 Primary care physician: Chiqui Banda MD Medical - DS: Meds - Discharge Medications Prescriptions: Ertapenem [Invanz] 1 gm IV Q24H #3 vial Active and Home Medications: Home Medications albuterol sulfate 2.5 mg/3 mL (0.083 %) solution for nebulization 2.5 mg INHALATION Q4HP PRN 04/23/17 [History Confirmed 07/28/18 Last Taken 07/28/18 10:00] aspirin 81 mg chewable tablet 81 mg PO QDAY 04/23/17 [History Confirmed 07/28/18 Last Taken 07/28/18 09:00] atorvastatin 10 mg tablet 10 mg PO QDAY 04/23/17 [History Confirmed 07/28/18 Last Taken 07/28/18 09:00] diclofenac 1 % topical gel 2 - 4 g TOPICAL BIDP PRN g 04/23/17 [History Confirmed 07/28/18 Last Taken 07/28/18 10:00] omeprazole 40 mg capsule,delayed release 40 mg PO BIDAC 04/23/17 [History Confirmed 07/28/18 Last Taken 07/28/18 09:00] epinephrine 0.3 mg/0.3 mL injection, auto-injector 0.3 mg IM PRN PRN 04/26/17 [History Confirmed 07/28/18 Last Taken 06/21/11] ipratropium-albuterol 0.5 mg-3 mg(2.5 mg base)/3 mL nebulization soln 3 ml INHALATION Q4HP PRN ml 04/26/17 [History Confirmed 07/28/18 Last Taken 07/28/18 09:00] mometasone 220 mcg (120 doses) breath activated powder inhaler 2 inh INHALATION BID each 04/26/17 [History Confirmed 07/28/18 Last Taken 07/28/18 10:00] gabapentin 300 mg capsule 600 mg PO BID 08/25/17 [History Confirmed 07/28/18 Last Taken 07/28/18 09:00] lidocaine 5 % topical patch 1 patch TOPICAL Q24H 08/25/17 [History Confirmed 07/28/18 Last Taken 07/22/18 10:00] tiotropium 2.5 mcg-olodaterol 2.5 mcg/actuation mist for inhalation 1 puff INHALATION BID g 03/09/18 [History Confirmed 07/31/18 Last Taken 07/28/18 09:00] albuterol sulfate HFA 90 mcg/actuation aerosol inhaler 2 puff INHALATION Q6H PRN #34 g 06/28/18 [Rx Confirmed 07/28/18 Last Taken 07/28/18 09:00] Diazepam [Valium] 5 mg PO TIDP PRN #60 tab 07/26/18 [Rx Confirmed 07/28/18 Last Taken 07/27/18 22:00] Docusate Sodium [Colace] 100 mg PO BID #60 cap 07/26/18 [Rx Confirmed 07/28/18 Last Taken 07/28/18 10:00] HYDROcodone/APAP 10/325MG [Helix 10-325Mg] 1 - 2 tab PO Q4HP PRN #75 tab 07/26/18 [Rx Confirmed 07/28/18 Last Taken 07/28/18 10:00] Ertapenem [Invanz] 1 gm IV Q24H #3 vial 08/02/18 [Rx Last Taken Unknown] Medical - DS: Hosp Hospital course: Discharge diagnosis * COPD with exacerbation -clinically resolved. Management bronchodilators/pulmonary toilet * Bilateral multifocal nosocomial pneumonia-clinically improved continue ertapenem for additional 3 days outpatient IV infusion * Severe sepsis secondary to above-clinically resolved. White count normalized * Elevated LFTs/right lower lobe lesion on ultrasound. MRI unremarkable. LFTs downtrending. Likely secondary to sepsis and endorgan dysfunction * Acute hypoxemic respiratory failure-resolved . Now on room air. * Low phosphorus -resolved with replacement. * Tobacco abuse-nicotine patch,Smoking cessation advised * Obstructive sleep apnea-continue home CPAP * Gastroesophageal reflux disease-Continue PPI * History of left reverse total shoulder arthroplasty-Dr. Santo aware of admission. Continue with immobilizer. Continue physical therapy Brief hospital course 07/28 Mr. Valdez is a 63 year old M with a history of COPD, tobacco abuse, peptic sleep apnea on CPAP, reflux, coronary disease and osteoarthritis who had a reverse left total shoulder done on Wednesday of this week, who presents from [facility] with acute respiratory infection. The patient was discharged from the hospital on Wednesday. [facility] [place] [facility] Wednesday. He developed some labored breathing. The next morning he was about the same, however they went home. He subsequently continued to have labored breathing, developed fever up to 101.5. He became lethargic, decreased appetite, more fatigued and experiencing body aches in his upper body. He was using his incentive spirometer, he was driving 2500 mL on the hospital, could only get inspiratory volume to 500 mL's by the time they presented to the hospital. Today he continued to have fever, was fatigued and falling asleep or trying to eat, was dyspneic. His home oxygen saturation was about 70%. He received a DuoNeb, this increased to 73%. He did have a tank of oxygen at home (he does not routinely use oxygen) and they presented to [facility]. There is temperature was [id number]. Pulse is in the 90s. Saturations on room air were in the low 80s. White count was elevated at 13.7, electrolytes and renal function were normal. Chest radiograph, reports reads "Bilateral perihilar fullness and bilateral pulmonary opacities. The appearance is nonspecific but can be seen in setting of pulmonary edema, diffuse pneumonitis, atypical infection." He was still experiencing significant dyspnea which improved to some degree after breathing treatments. He is transferred to [facility] for hospitalization for COPD exacerbation with pneumonia, meeting sepsis criteria with fever, white count, tachypnea, hypoxia and suspected infection. 07/29 Feels improved this morning, though still short of breath. No fever or chills. Requiring oxygen today. 07/30-patient doing well. No overnight events. No concerns per staff. On 2 L oxygen. On broad antibiotic coverage-ertapenem in light of multiple allergies. Clinically improving. Ongoing physical therapy. Continue bronchodilators/nutrition support. No overnight fever chills or concerns per staff. Left shoulder pain in good control. Currently in a sling. On nicotine patch. On bowel protocol. 07/31-patient doing well. at bedside. On room air now. White count downtrending to 8000. Feels a lot better. Patient will continue IV antibiotics and discharge at patient infusion. Ongoing physical therapy/nutrition support. Patient insists that diet be changed to regular instead of low-salt. No overnight fever or concerns per staff 08/01-patient doing better however persistent elevation in LFTs. Ultrasound gallbladder reveals right lower lobe lesion and recommends MRI. at bedside. No overnight events. Tolerating diet and ambulating. Left shoulder pain improved. Arm in sling. No concerns expressed by nursing staff. 08/02-patient doing better. Now on room air. Ambulating. Feels at baseline. White count normalized. LFTs downtrending. MRI abdomen no evidence of acute process. Scheduled outpatient IV ertapenem infusion. Discharge instructions below. Follow-up with PCP/orthopedics as advised Discharge diagnosis: . - Time Spent with Patient Total time spent providing and/or coordinating discharge services: Medical - DS: Exam - Constitutional Vitals: Vital Signs Temp Pulse Pulse Pulse Resp BP BP 08/02/18 11:56 98.6 F 77 18 115/73 08/02/18 07:54 97.8 F 88 20 133/81 08/02/18 07:14 74 18 08/02/18 06:50 83 18 08/02/18 04:00 97.8 F 80 20 124/75 08/02/18 00:53 82 20 08/02/18 00:41 80 20 08/01/18 23:35 97.9 F 74 18 125/82 08/01/18 20:39 84 20 08/01/18 19:34 99.2 F H 88 24 H 120/68 08/01/18 15:42 97.7 F 85 18 131/84 08/01/18 13:20 91 H 18 Pulse Ox 08/02/18 11:56 92 08/02/18 07:54 92 08/02/18 07:14 95 08/02/18 06:50 08/02/18 04:00 92 08/02/18 00:53 08/02/18 00:41 08/01/18 23:35 99 08/01/18 20:39 08/01/18 19:34 90 08/01/18 15:42 92 08/01/18 13:20 Intake and Output 08/01/18 08/02/18 08/02/18 21:59 05:59 13:59 Intake Total 1400 1400 530 Output Total 550 350 825 Balance 850 1050 -295 Intake: IV 1000 1000 50 Sodium Chloride 0.9% 1,000 ml @ 1000 1000 100 mls/hr IV .Q10H UTE Rx#: [id number] INVanz 1 GM In Sodium Chloride 50 0.9% 50 ml @ 100 mls/hr IV Q24H UTE Rx#:[id number] Oral 400 400 480 Output: Void Amount 550 350 825 Other: Meal Breakfast Percent of Meal Consumed 100% Feeding Ability Independent Urine Appearance Clear Urine Color Dark Yellow Urine Odor Normal Stool Size Moderate Stool Color Brown Stool Consistency Soft Formed # Voids 1 Weight 187 lb Medical - DS: Data Labs on day of discharge: Labs from last 24 hours 08/02/18 07/29/18 04:16 04:30 Sodium 138 Potassium 4.0 Chloride 104 Carbon Dioxide 23 Anion Gap 11.0 BUN 11 Creatinine 0.8 GFR Calculation 95 Glucose 85 Uric Acid 3.5 Calcium 8.1 L Phosphorus 3.0 Magnesium 2.3 Total Bilirubin 0.5 Direct Bilirubin < 0.2 GGT 220 H AST 61 H ALT 123 H Alkaline Phosphatase 191 H Lactate Dehydrogenase 275 H Total Protein 5.8 L Albumin 2.7 L Globulin 3.1 Albumin/Globulin Ratio 0.9 L Triglycerides 118 Ur L.pneumophila Ag Not detected Preliminary micro results at discharge 07/28/18 18:28 Blood Culture - Preliminary Blood 07/28/18 18:05 Blood Culture - Preliminary Blood Medical - DS: A/P - Patient/Caregiver Discharge Instructions Activity: as per physical therapy, increase activity as tolerated Diet: Regular Diet Additional Instructions: Follow-up PCP in 5 days F/u orthopedics as scheduled by orthopedics along with continued post op care. Antibiotics for additional 3 days IV ertapenem Continue aggressive bowel regimen to prevent constipation Continue fall precautions Continue postoperative PT OT evaluation and treatment as directed by orthopedics All meals on chair sitting upright at 90 degrees to prevent aspiration Return to ER if worsening fever chills shortness of breath, diarrhea, bleeding Review risk and side effect profile of medications including antibiotics. Side effect may include mild to severe reaction including rash, diarrhea, cdiff and even which can be prevented by close follow-up with PCP and monitoring for side effects Refrain from smoking and alcohol Continue diet and activity as advised Discussed importance of medication adherence Please review medication list with patient prior to discharge Please schedule follow-up with PCP/Providers prior to discharge and provide printouts Prescriptions: Ertapenem [Invanz] 1 gm IV Q24H #3 vial - Follow up Plan Disposition: Home, Self-Care Prognosis: Fair Rehab Potential: Fair I certify that the patient requires SNF services: No Overall status at discharge: patient is progressing back to baseline Medical - DS: Qual - VTE Deep Vein Thrombosis/Pulmonary Embolism Present on Admission: No
== END 2018-08-02 13:45 | disposition home or self-care (01) | DRG 871 ==
LOC: ICU 16:24 → MEDSUR 07-29 16:02
PROVIDERS: ADMIT Internal Medicine; ATTEND Internal Medicine